=== PATIENT | male | born 1945 | race Caucasian/White ===

== ENCOUNTER 2017-05-07 10:05 | Inpatient (IN) ==
[2017-05-07] MEDS ORDERED: ASPIRIN PO STA (10:21)
[2017-05-07] MEDS ORDERED: LOPRESSOR IV ONE (10:22)
[2017-05-07 10:53] LABS: BASO% 3.9 % (0.0-0.8); HEMATOCRIT 35.2 % (42.0-52.0); HEMOGLOBIN 12.3 g/dL (14.0-18.0); LYMPH# 1.11 X1000 (1.2-3.4); LYMPH% 31.1 % (20.5-51.1); MANUAL DIFF NEEDED? NO; MCH 31.4 PG (27-31); MCHC 34.9 g/dL (33-37); MCV 89.8 FL (81-99); MONO# 0.51 X1000 (0.11-0.59); MONO% 14.3 % (1.7-9.3); NEUT% 50.7 % (42.2-75.2); PLT 57 X1000 (130-400); RBC 3.92 XMIL (4.7-6.1)
[2017-05-07 11:01] LABS: INR 1.34; PROTIME 14.3 Seconds (9.2-11.7); PTT 26.5 Seconds (22.0-36.0)
--- NOTE | 2017-05-07 11:04 | Diag Imaging Result Doc PS360 ---
EXAM: CHEST-2 VIEWS HISTORY: CP TECHNIQUE: Portable sitting upright COMPARISON: 02/14/2016 FINDINGS: The lungs are well expanded. The heart is not enlarged. The vessels are not distended. There are no infiltrates. No pleural effusions. IMPRESSION: No acute abnormality. Electronically signed by Jayant Montez 05/07/2017 11:02 AM
[2017-05-07 11:06] LABS: ALBUMIN 3.3 g/dL (3.5-5.0); CALCIUM 8.5 mg/dL (8.8-10.2); MAGNESIUM 1.9 mg/dL (1.5-2.7); POTASSIUM 3.5 mmol/L (3.5-5.1); TOTAL BILIRUBIN 0.92 mg/dL (0.20-1.00); TOTAL PROTEIN 6.4 g/dL (6.3-8.3)
--- NOTE | 2017-05-07 11:39 | EKG Report ---
Test Performed on : 05/07/2017 10:12:05 AM Test Reason : Chest Pain Blood Pressure : / mmHG Vent. Rate : 119 BPM Atrial Rate : 122 BPM P-R Int : 000 ms QRS Dur : 084 ms QT Int : 332 ms P-R-T Axes : 000 059 -39 degrees QTc Int : 467 ms Atrial fibrillation. with rapid ventricular response. Septal infarct , age undetermined Abnormal ECG When compared with ECG of 16-FEB-2016 05:20, Atrial fibrillation. has replaced Sinus rhythm. Vent. rate has increased BY 64 BPM Non-specific change in ST segment in Inferior leads Nonspecific T wave abnormality, worse in Inferior leads Unconfirmed Result
--- NOTE | 2017-05-07 12:11 | ED EKG INTERP ---
This chart was entered by Marcy Perry Scribe, acting as scribe for Juancho Sanz MD. EKG Interpretation - EKG Time of EKG reading by physician:: 10:12 EKG Read and Signed by:: Juancho Sanz EKG Interpretation (*Must complete 3 of following elements*): Abnormal Rate: 119 Rhythm: A-FIB W/RVR [place]: normal QRS: normal Comments: SEPTAL INFACRT, AGE UNDETERMINED This chart was documented by the indicated scribe, (Marcy Perry Scribe) and accurately reflects the services I performed and decisions made by me, Juancho Sanz MD, as attested by the provider's signature.
--- NOTE | 2017-05-07 12:11 | PROVIDER DOCUMENTATION ---
This chart was entered by Marcy Perry Scribe, acting as scribe for Juancho Sanz MD. HPI-General Adult - General Chief Complaint: Near Syncope Stated Complaint: WEAKNESS/A-FIB W/RVR Time Seen by Provider: 05/07/17 10:20 Source: patient Allergies/Adverse Reactions: Patient Allergies Allergy/AdvReac Type Severity Reaction Status Date / Time No Known Allergies Allergy Verified 05/07/17 11:06 Home Medications: Home Medication List Medication Instructions Recorded Confirmed Last Taken Type Atorvastatin Calcium [Lipitor] 10 mg PO QAM 12/07/15 05/07/17 05/06/17 History Folic Acid 1 mg PO QAM 12/07/15 05/07/17 05/06/17 History Allopurinol 100 mg PO DAILY 02/14/16 05/07/17 05/06/17 History RAMIpril [Altace] 10 mg PO BID #60 capsule 02/16/16 05/07/17 05/06/17 Rx Apixaban [Eliquis] 5 mg PO DAILY 08/10/16 05/07/17 05/06/17 History Hydralazine HCl 50 mg PO TID 08/10/16 05/07/17 05/06/17 History Methotrexate 3 tab PO MOTU 08/10/16 05/07/17 05/01/17 History Omeprazole [Prilosec] 40 mg PO DAILY 08/10/16 05/07/17 05/06/17 History Spironolactone 25 mg PO DAILY 08/10/16 05/07/17 05/06/17 History Diltiazem HCl [Cartia Xt] 120 mg PO 05/07/17 Unknown History Furosemide [Lasix] 40 mg PO DAILY 05/07/17 05/07/17 05/06/17 History - History of Present Illness -Gen Adult Nature of Presenting Problems: PT IS A 71YOM PRESENTING TO THE ED C/O WEAKNESS. PT STATES SINCE SUNDAY HE HAS FELT WEAK WITH FEELING "FAINT WHEN STANDING". PT HAS A YELLOWISH TONE TO SKIN. PT STATES FEELS PALPITATIONS AND INCREASED WEAKNESS UPON STANDING. NO OTHER COMPLAINTS AT THIS TIME. Location of Pain/Injury: reports: none Pain Radiation: reports: no radiation Quality of Pain: reports: none Severity: reports: mild Onset/Duration: reports: gradual, 3 days ago Timing: reports: still present Context/Activities at Onset: reports: light activity Modifying Factors: improves with: nothing Associated Symptoms: reports: fatigue, weakness. denies: anxiety, back/neck pain, chest pain, sinus congestion/drainage, shortness of breath Similar Symptoms Previously?: No Recently seen or treated by another doctor?: No Review of Systems - Adult - REVIEW OF SYSTEMS - ADULT Constitutional: reports: no symptoms reported Eyes: reports: no symptoms reported Ears, Nose, Mouth & Throat: reports: no symptoms reported Cardiovascular: reports: see HPI, palpitations. denies: chest pain, edema, syncope Respiratory: reports: no symptoms reported Gastrointestinal: reports: no symptoms reported Genitourinary: reports: no symptoms reported Musculoskeletal: reports: no symptoms reported Integumentary: reports: no symptoms reported Neurological: reports: no symptoms reported Psychiatric: reports: no symptoms reported Endocrine: reports: no symptoms reported Hematologic/Lymphatic: reports: no symptoms reported Allergic/Immunologic: reports: no symptoms reported All Other Systems: Reviewed and Negative Past History - Adult - PAST MEDICAL HISTORY-ADULT Review of Records: reports: Old Records Reviewed, Nursing Assessment Review, Medications Reviewed, Social history reviewed & non-contributory. Major Childhood Illnesses: reports: denies history Cardiovascular: reports: A-Fib, HTN, hyperlipidemia Respiratory: reports: COPD Gastrointestinal: reports: denies history Obstetrical/Gynecological: reports: denies history Genitourinary: reports: denies history Musculoskeletal: reports: denies history Neurological: reports: denies history Endocrine/Immune: reports: denies history Other Conditions: reports: denies history - PRIOR SURGERIES/PROCEDURES Surgical/Procedure History: reports: hernia repair - PRIOR HOSPITALIZATIONS Prior Hospitalizations: reports: none - IMMUNIZATION STATUS Childhood Immunizations: See Nurse Assessment Flu Vaccine: See Nurse Assessment - FAMILY HISTORY Family History: reviewed, not pertinent - SOCIAL HISTORY Smoking: non-smoker Substance Use: none/never, denies Living Situation: family Physical Exam-General - PHYSICAL EXAM-ADULT Initial Vital Signs Reviewed: Yes - CONSTITUTIONAL General Appearance: appears well, alert, mild distress, anxious - EYES Eyes: PERRL/EOMI, pink conjunctivae - HEAD, EARS, NOSE, MOUTH & THROAT HENMT: normocephalic/atraumatic, moist mucous membranes, normal ENT inspection, TMs normal, pharynx normal - NECK Neck: non-tender, full range of motion, supple, normal inspection - RESPIRATORY Respiratory: chest non-tender, lungs clear, normal breath sounds, no pleuratic chest pain, no respiratory distress, no accessory muscle use - CARDIOVASCULAR Cardiovascular: normal peripheral pulses, no edema, no gallop, no JVD, no murmur , tachycardia. negative: regular rate, rhythm - GASTROINTESTINAL (ABDOMEN) Abdominal Exam: normal bowel sounds, non tender, soft, no organomegaly, no pulsatile mass - LYMPHATIC Lymphatic: no adenopathy - MUSCULOSKELETAL Back Exam: normal inspection, no CVA tenderness, no vertebral tenderness Extremity: normal range of motion, non-tender, normal gait, normal inspection, no pedal edema, no calf tenderness, normal capillary refill, pelvis stable - SKIN Integumentary: normal turgor, warm/dry, jaundice. 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, grossly normal, no motor/sensory deficits - PSYCHIATRIC Psych/Mental Status: normal mood/affect, normal thought content, normal thought process, oriented x 3 Progress - PLAN OF CARE/RESULTS Progress/Plan/Lab Results: Vital Signs - 8 hr 05/07/17 10:14 Temperature 98.4 F Pulse Rate 115 H Respiratory Rate 17 Blood Pressure 106/64 O2 Sat by Pulse Oximetry 95 Laboratory Tests 05/07/17 05/07/17 05/07/17 10:09 10:09 10:09 WBC 3.57 L RBC 3.92 L Hgb 12.3 L Hct 35.2 L MCV 89.8 MCH 31.4 H MCHC 34.9 RDW Std Deviation 14.2 Plt Count 57 L MPV Not Reportable Immature Gran % (Auto) 0.0 Neut % (Auto) 50.7 Lymph % (Auto) 31.1 [place] % (Auto) 14.3 H Eos % (Auto) 0.0 Baso % (Auto) 3.9 H Immature Gran # (Auto) 0.00 Neut # (Auto) 1.81 Lymph # (Auto) 1.11 L [place] # (Auto) 0.51 Eos # (Auto) 0.00 Baso # (Auto) 0.14 PT INR PTT (Actin FS) Sodium 130 L Potassium 3.5 Chloride 92 L Carbon Dioxide 17 L Anion Gap 21 BUN 33 H Creatinine 1.9 H Estimated GFR/1.73 m2 35 BUN/Creatinine Ratio 17 Glucose 104 Calculated Osmolality 268 Calcium 8.5 L Magnesium 1.9 Total Bilirubin 0.92 AST 83 H ALT 65 H Alkaline Phosphatase 42 Creatine Kinase 147 Troponin T Oqm-M-Lpotyhareii Pept 3135 H Total Protein 6.4 Albumin 3.3 L Globulin 3.1 Albumin/Globulin Ratio 1.1 05/07/17 05/07/17 10:09 10:09 WBC RBC Hgb Hct MCV MCH MCHC RDW Std Deviation Plt Count MPV Immature Gran % (Auto) Neut % (Auto) Lymph % (Auto) [place] % (Auto) Eos % (Auto) Baso % (Auto) Immature Gran # (Auto) Neut # (Auto) Lymph # (Auto) [place] # (Auto) Eos # (Auto) Baso # (Auto) PT 14.3 H INR 1.34 PTT (Actin FS) 26.5 Sodium Potassium Chloride Carbon Dioxide Anion Gap BUN Creatinine Estimated GFR/1.73 m2 BUN/Creatinine Ratio Glucose Calculated Osmolality Calcium Magnesium Total Bilirubin AST ALT Alkaline Phosphatase Creatine Kinase Troponin T < 0.010 Scd-W-Ayztmbnqlll Pept Total Protein Albumin Globulin Albumin/Globulin Ratio Orders Category Date Time Status Cardiac Monitoring DIRECTED Care 05/07/17 10:21 Active Saline Loc NOW Care 05/07/17 10:21 Active CHEST-2 VIEWS [RAD] Stat Exams 05/07/17 10:21 Completed CBC WITH ELECTRONIC DIFF [HEME] Stat Lab 05/07/17 10:09 Completed CK PROFILE [SP CHEM] Stat Lab 05/07/17 10:09 Completed COMPREHENSIVE METABOLIC PANEL [CHEM] Stat Lab 05/07/17 10:09 Completed MAGNESIUM [CHEM] Stat Lab 05/07/17 10:09 Completed PRO B-NATRIURETIC PEPTIDE Stat Lab 05/07/17 10:09 Completed PROTIME WITH INR [COAG] Stat Lab 05/07/17 10:09 Completed PTT [COAG] Stat Lab 05/07/17 10:09 Completed TROPONIN T Stat Lab 05/07/17 10:09 Completed Aspirin Med 05/07/17 10:21 Discontinued 325 mg PO STAT STA Metoprolol [Lopressor] Med 05/07/17 10:22 Discontinued 2.5 mg IV NOW ONE EKG [EKG] Stat Ther 05/07/17 10:21 Draft Vital Signs - 24 hr 05/07/17 10:14 05/07/17 11:00 05/07/17 11:21 Temperature 98.4 F Pulse Rate 115 H 91 H 102 H Respiratory Rate 17 21 18 Blood Pressure 106/64 105/73 105/73 O2 Sat by Pulse Oximetry 95 97 96 Result Diagrams: 05/07/17 10:09 05/07/17 10:09 - XRAY 1 XRAY: Bilateral XRAY Study: Chest (NAD - HURST) - CONSULTS/PCP/HOSPITALIST Notification #1 *Consult/PCP/Hospitalist*: CARISSA Time Discussed: 12:05 Consult Disposition: Admit Departure - Departure Date of Disposition Decision: 05/07/17 Time of Disposition Decision: 12:05 DIAGNOSIS: CHF (congestive heart failure), Atrial fibrillation with RVR Disposition: ADMITTED INPATIENT 09 Certified Medical Emergency: Emergent Condition: Stable Additional Freetext Instructions: ED Follow Up Instructions: You have been treated by a care provider in the Emergency Department. These instructions are being provided to you so you can have an understanding of how to care for yourself upon discharge. Upon discharge from the Emergency Department, you are responsible for making arrangements for follow-up care by a physician of your choice. Take all prescribed medications as directed. Return to the Emergency Department immediately for any new or worsening symptoms. You may call the Physician Referral phone number at [phone] to obtain a list of Physicians who are taking new patients. Referrals and Follow-Ups: Viraj Patiño MD [Primary Care Provider] - - Critical Care Note This patient required my direct & personal management of CC.: Yes Total Time (mins): 60 Critical Care Statement: This patient required my direct personal management to treat or rule out processes, the absence of which, could potentiallly result in sudden, clinically significant life or limb threatening deterioration. This chart was documented by the indicated scribe, (Marcy Perry Scribe) and accurately reflects the services I performed and decisions made by me, Juancho Sanz MD, as attested by the provider's signature.
[2017-05-07] MEDS ORDERED: NS 1,000 ML IV ONE (13:44)
[2017-05-07] MEDS ORDERED: ZOFRAN IV PRN (13:44)
[2017-05-07] MEDS ORDERED: NS 1,000 ML ONE (14:55)
--- NOTE | 2017-05-07 18:43 | CONSULTATION ---
DATE OF CONSULTATION: 05/07/2017 CONSULTATION REQUESTED BY: Hospitalist Service. REASON FOR CONSULTATION: Acute chronic diastolic heart failure. I was notified by pager about this consult. I have not been contacted by the [facility] or the attending physician in this case. I am walking in the room at 5:30 p.m. Nurse is at the bedside. CHIEF COMPLAINT: Back pain, shortness of breath. Daughter is at the bedside. HISTORY OF PRESENT ILLNESS: Mr. Conway is a 71-year-old male who presented to the emergency room with a 3-4 day history of not feeling well. Appetite is poor. Poor oral intake. He has been having intermittent discomfort across the top of his shoulders and also intermittent shortness of breath. This morning his daughter found him to be very shaky, weak. He could barely get up or stand up. She decided to call the emergency medical service. Upon presentation to the emergency room, they did an EKG at 10:12 in the morning that shows atrial fibrillation with rapid response. Rate is 119 beats per minute. They noted a blood pressure of 106/64 at the first encounter, subsequently 105/73, 84/40, 107/54, 99/55. The patient has been admitted to the telemetry floor with a suspected case of atrial fibrillation, new onset or paroxysmal. His pro BNP level in the emergency room was 3135. Initial troponin was less than 0.010. CK was 147. His AST and ALT are elevated. Calcium level is low. His BUN is 33, creatinine 1.9, sodium 130, potassium 3.5. His white count is low at 3570, platelet count is low at 57 ,000, hemoglobin 12.3. PAST MEDICAL HISTORY: His past history is positive for hypertension for a number of years. He has had gout. He has had hyperlipidemia. He was seen by Dr. Margaux Sebastian at our office back in July of 2016. At that time, he had reported a previous bout of atrial fibrillation in December of 2015. The patient had a stress test in November of 2015 that was normal. There is no reported history of coronary heart disease on him. He has had reflux. He has had a hernia repair. History of psoriasis (on methotrexate for that). History of thrombocytopenia, follows with Dr. Davis for that. HOME MEDICATIONS: His home medications at the time of this admission included: 1. Furosemide 40 mg daily. 2. Methotrexate 3 tablets monthly. 3. Spironolactone 25 daily. 4. Ramipril 10 mg twice a day. 5. Omeprazole 40 mg daily. 6. Hydralazine 50 mg 3 times a day. 7. Folic acid 1 mg in the morning. 8. Lipitor 10 mg daily. 9. Eliquis 5 mg daily. 10.Allopurinol 100 mg daily. 11.Diltiazem 120 daily. ALLERGIES: He has no reported allergies. REVIEW OF SYSTEMS: Multiple systems were checked, cardiovascular, pulmonary, gastrointestinal, musculoskeletal, skin, immunological, hearing, visual, unremarkable. No major changes up until 4 days ago when the symptoms started. He says that on May 03 he went to see who diagnosed UTI and prescribed an antibiotic of which he took 4 doses. PHYSICAL EXAMINATION: Vital signs: Right now his blood pressure is 99/55. Pulse is about 110. Temperature 97.4. Respirations 16. General: The patient is in some painful distress. He says that his back started to hurt this afternoon and he is very uncomfortable. He is somewhat shaky. He appears to be generally weak and acutely ill. HEENT: Unremarkable. Chest: Fairly clear to auscultation and percussion. Cardiac: Heart sounds are irregularly irregular. Abdomen: Not distended and it does not appear to be specifically tender. Back: His back is somewhat tender at the level of the right flank to percussion. I palpated the spine and percussed the spine intensely and that did not reproduce the pain. Extremities: Showed decreased pulses. There is no peripheral edema. Neurologic: He is somewhat shaky, awake. He is in some painful distress. His back is hurting. The pain is somewhere in the upper lumbar area. IMPRESSION: 1. Patient presenting with a few days of anorexia, poor oral intake. His blood work indicates some degree of acute renal dysfunction with elevated creatinine up to 1.9 which is double the creatinine that we have on record. 2. Patient having acute back pain. 3. Patient having low blood pressure, hypotension. 4. Patient with atrial fibrillation and rapid response. 5. Patient is immunosuppressed on methotrexate for management of psoriasis. 6. Presumed diagnosis of UTI, given antibiotic (?) of which he took 4 doses. RECOMMENDATIONS: At this point in time, I would suggest to admit the patient to the cardiac stepdown unit for IV Cardizem management of his atrial fibrillation. We may have to put him on some pain medicine to control his back pain, however, I would like to get a CT scan of the chest and abdomen to further evaluate the symptom of back pain which is causing some distress. I will get ABGs, D-dimer, amylase and lipase. We will check inflammatory markers, C reactive protein and sedimentation rate. Further advice will be forthcoming. Thank you for asking us to participate in his evaluation. cc: Wes Tejada MD MTDD
--- NOTE | 2017-05-07 19:36 | HISTORY AND PHYSICAL ---
PRIMARY CARE PROVIDER: Dr. Patiño who we are currently covering his patients. CHIEF COMPLAINT: Shortness of breath, decreased appetite and weakness. HISTORY OF PRESENT ILLNESS: Mr. Conway is a 71-year-old male with a medical history of chronic diastolic heart failure, paroxysmal atrial fibrillation that is chronic, hypertension, hyperlipidemia who apparently since Sunday began feeling weak began feeling short of breath despite resting or movement. He has had a decrease in appetite. States he has not eaten or slept well sent. He then claims to having some spells of confusion. Upon standing he gets dizzy and nauseated, loses balance. Claims his blood pressure has been as low as 73 systolic to as high as 182 systolic since Sunday. Prior to Sunday he did have some of these symptoms on and off and had stopped taking his Cardizem this past Sunday. Last bowel movement was Sunday night, was normal in color and consistency. Workup revealed that he does have elevated creatinine of 1.9,m also has an elevated proBNP of 3135 and elevated AST and ALT of 83 and 65 which is new. Will admit overnight, consult Cardiology for further recommendations. PAST MEDICAL HISTORY: Chronic atrial fibrillation, chronic diastolic congestive heart failure, hypertension, dyslipidemia, GERD, psoriasis that he takes methotrexate for, thrombocytopenia, vitamin D deficiency, hyperuricemia and impaired fasting glucose. SURGICAL HISTORY: Umbilical hernia repair. SOCIAL HISTORY: Denies tobacco, states he drinks 1 alcoholic beverage per day. Quit smoking in January 2015, denies illicit drug use. FAMILY HISTORY: None significant. ALLERGIES: No known drug allergies. HOME MEDICATIONS: Allopurinol 100 mg p.o. daily, Eliquis 5 mg p.o. daily, Lipitor 10 mg p.o. daily, diltiazem 120 mg p.o. daily, folic acid 1 mg p.o. daily, Lasix 40 mg p.o. daily, hydralazine 50 mg p.o. 3 times a day, methotrexate 7.5 mg p.o. Sunday and Sunday, Prilosec 40 mg p.o. daily, Ramipril 10 mg p.o. twice daily, spironolactone 25 mg p.o. daily. REVIEW OF SYSTEMS: Fourteen point review of systems were complete and all were negative except for those mentioned in above HPI. PHYSICAL EXAMINATION: VITAL SIGNS: Temperature is 98.0 degrees, heart rate 111 irregular, respiratory 18, blood pressure 110/58, O2 saturation 99% on room air. Orthostatic vitals supine heart rate 90, blood pressure 113/90, sitting heart rate 99, blood pressure 102/34 and standing heart rate 110 and blood pressure 90/46. GENERAL: Mr. Ruben Conway is a 71-year-old male who is in no acute distress. He is able answer all questions appropriately. HEENT: Atraumatic, normocephalic. Pupils equal, round, reactive to light. Extraocular movements intact. NECK: No JVD or carotid bruits noted. CARDIOVASCULAR: Irregularly irregular rate and rhythm. No rubs, gallops, murmurs. PULMONARY: Clear to auscultate. Bilateral breath sounds. No accessory muscle use or work of breathing noted. GI: Soft, nontender, nondistended, positive bowel sounds x4. EXTREMITIES: Trace lower extremity edema noted, +1 dorsalis pedal pulses, +2 radial pulses. SKIN: Warm, dry, intact. NEUROLOGIC: A and O x4. Moves all extremities equally. LABORATORY DATA: White blood cells 3000, hemoglobin 12, hematocrit 35, platelet count 57,000. INR 1.34, PTT is 26.5. Sodium 130, potassium 3.5, BUN 33, creatinine is 1.9, glucose 104, magnesium 1.9, bilirubin 0.92, AST 83, ALT 65, CK 147, troponins less than 0.01, ProBNP is 3135, albumin 3.3. IMAGING: Chest x-ray no acute findings. EKG. Atrial fibrillation with RVR, rate 122, 53, 467. ASSESSMENT AND PLAN: 1. Acute on chronic diastolic congestive heart failure mild in nature on. Will consult cardiology for recommendations. Patient feels like he is short of breath frequently since Sunday with some near-syncopal type sensations of dizziness with nausea. 2. Orthostatic hypotension mild degree but this could be causing his dizziness. 3. Acute kidney injury, will be given IV fluid hydration and recheck labs in the morning. 4. Atrial fibrillation with rapid ventricular response, rate is more controlled, he did receive 2.5 mg of metoprolol in the emergency room, will also continue with Eliquis and aspirin. 5. Thrombocytopenia. Recently had bone marrow aspiration in July 2016, will reconsult Dr. Davis. Dictated by NEETA Rogers for Tho Asencio MD cc: MD Tho Sharif MD
[2017-05-07 19:42] LABS: BILIRUBIN URINE NEGATIVE (NEGATIVE); BLOOD URINE NEGATIVE (NEGATIVE); COLOR YELLOW; GLUCOSE URINE TRACE mg/dL (NEGATIVE); LEUKOCYTES URINE NEGATIVE (NEGATIVE); NITRITE URINE NEGATIVE (NEGATIVE); PROTEIN URINE 30 mg/dL (NEGATIVE); SP GRAVITY URINE 1.022; TURBIDITY URINE CLEAR (CLEAR); UR EPITHELIAL CELLS <10 /HPF (<10); URINE BACTERIA NEGATIVE /HPF; URINE CULTURE NEEDED? NO; URINE MICRO REVIEW NEEDED? NO; URINE RBC <10 /HPF (<10); URINE SOURCE CLEAN CATCH; URINE WBC <10 /HPF (<10); UROBILINOGEN URINE NORMAL (NORMAL)
[2017-05-07 19:54] LABS: ALLEN TEST YES; BE -7.3 mmoll (-3.0-3.0); BLOOD TYPE ARTERIAL; DRAW SITE R BRACHIAL; METHB 0.8 % (0.0-1.5); MODALITY ROOM AIR; O2(CT) 13.9 mL/dL (15.0-23.0); PCO2(98.6) 21 mmHg (35-45); PO2(98.6) 92 mmHg (60-100); SAMPLE BLOOD; SAO2 97.4 % (95.0-100.0); THB 10.2 g/dL (11.5-17.4); pH(98.6) 7.46 (7.35-7.45)
[2017-05-07 19:55] LABS: UR CREAT RANDOM 209.6 mg/dL (14-26)
--- NOTE | 2017-05-07 21:18 | Diag Imaging Result Doc PS360 ---
EXAM: THORAX/ABDOMEN/PELVIS W/O CONT HISTORY: severe chest pain ORAL ONLY TECHNIQUE: Dose reduction protocol COMPARISON: None. FINDINGS: Chest: No pleural effusions. Trace pericardial fluid. Heart is borderline mildly prominent. There are calcified mediastinal and right hilar lymph nodes and scattered calcified granuloma. No thoracic aortic aneurysm. No pneumothoraces. No consolidation. No bronchiectasis. Minimal groundglass infiltrates. Abdomen and pelvis: There is sludge within the gallbladder. No adjacent inflammation. The spleen is enlarged measuring 14.9 cm. There are scattered hepatic and splenic granuloma. No focal hepatic abnormality identified on this noncontrasted exam. No inflammation about the pancreas. Normal adrenal glands. No renal stones. No hydronephrosis. Prominent atherosclerosis. No aortic aneurysm. There are scattered mesenteric and para-aortic lymph nodes. No bowel obstruction. Normal appendix. No abscess. The urinary bladder is distended and appears normal. The prostate is not enlarged. Small iliac and inguinal lymph nodes. IMPRESSION: Chest: 1. There is evidence of a prior granulomatous infection 2. Trace pericardial fluid with borderline mild cardiomegaly 3. Tiny groundglass infiltrates Abdomen and pelvis: 1. Splenomegaly 2. Sludge within the gallbladder 3. Small scattered lymph nodes 4. Moderate to marked spinal stenosis at multiple levels in the lumbar spine Electronically signed by Jayant Montez 05/07/2017 9:15 PM
[2017-05-08 05:28] LABS: BASO% 5.8 % (0.0-0.8); EOS# 0.33 X1000 (0.0-0.7); EOS% 9.1 % (0.0-10.0); HEMATOCRIT 34.8 % (42.0-52.0); HEMOGLOBIN 12.1 g/dL (14.0-18.0); IMM GRAN# 0.04 X1000 (0.0-0.04); IMM GRAN% 1.1 % (0.0-0.5); LYMPH# 1.28 X1000 (1.2-3.4); LYMPH% 35.2 % (20.5-51.1); MANUAL DIFF NEEDED? YES; MCH 31.3 PG (27-31); MCHC 34.8 g/dL (33-37); MCV 90.2 FL (81-99); MONO# 0.55 X1000 (0.11-0.59); MONO% 15.1 % (1.7-9.3); NEUT% 33.7 % (42.2-75.2); PLT 64 X1000 (130-400); RBC 3.86 XMIL (4.7-6.1)
--- NOTE | 2017-05-08 06:23 | EKG Report ---
Test Performed on : 05/08/2017 05:40:04 AM Test Reason : Heart Failure Admission Blood Pressure : / mmHG Vent. Rate : 111 BPM Atrial Rate : 117 BPM P-R Int : 000 ms QRS Dur : 078 ms QT Int : 308 ms P-R-T Axes : 000 075 -14 degrees QTc Int : 418 ms Atrial fibrillation. with rapid ventricular response. Anteroseptal infarct (cited on or before 07-MAY-2017) Abnormal ECG When compared with ECG of 07-MAY-2017 10:12, (Unconfirmed) Questionable change in initial forces of Anterior leads Nonspecific T wave abnormality now evident in Anterior leads Confirmed by Mahesh REYNA, Kendell Puckett ([id number]) on 05/09/2017 2:55:41 PM
[2017-05-08 06:42] LABS: ALBUMIN 2.9 g/dL (3.5-5.0); CALCIUM 8.2 mg/dL (8.8-10.2); MAGNESIUM 1.9 mg/dL (1.5-2.7); POTASSIUM 4.6 mmol/L (3.5-5.1); TOTAL BILIRUBIN 1.11 mg/dL (0.20-1.00)
[2017-05-08 07:08] LABS: LYMPHS 28 % (21-51); MONO 8 % (1-9)
[2017-05-08] MEDS: CARDIZEM PO SCH ×3 (08:54→21:42)
[2017-05-08] MEDS: SODIUM BICARBONATE 8.4% 150 MEQ in D5W 1,000 ML IV SCH (08:54)
[2017-05-08] MEDS: ASPIRIN PO SCH (08:54)
[2017-05-08] MEDS: ELIQUIS PO SCH (08:54)
[2017-05-08] MEDS: FOLIC ACID PO SCH (08:54)
[2017-05-08] MEDS: PRILOSEC PO SCH (08:54)
[2017-05-08] MEDS ORDERED: LEVAQUIN 750 MG/D5W 750 MG/150 ML IVPB IV SCH (09:00)
--- NOTE | 2017-05-08 09:05 | PROGRESS NOTE ---
DATE: 05/08/2017 CHIEF COMPLAINT: Back pain, irregular heartbeat. SUBJECTIVE: Mr. Conway still feels poorly. He says that he has had intermittent back pain through the night. OBJECTIVE: Vital signs: Blood pressure is 143/94, temperature 98.5. Pulse has fluctuated from 100 to 138, respirations 22. General: He is awake, alert, oriented, in no distress. HEENT: Unremarkable. Chest: Clear to auscultation and percussion. Cardiac: Heart sounds are irregularly irregular, no gallop or murmur. Abdomen: Nontender, obese, no masses, no hepatomegaly. Extremities: No edema. He does have some fading rash of psoriasis on the elbows. Neurological: Moves four extremities, follows commands. BLOOD WORK: His white count is 3640. Hemoglobin is 12.1, hematocrit 43.8, platelet count 64,000. His sedimentation rate is 34, C-reactive protein level was 84.55. Amylase and lipase were negative. ProBNP is 2036 today. His AST is up to 103, ALT 67. Magnesium 1.9. Sodium 128, potassium 4.6, BUN 31, creatinine 1.6. A rheumatoid factor has been checked, is 84 international units/mL, which is about 6 times baseline. TELEMETRY: Telemetry indicates atrial fibrillation with moments of rapid response. EKG: His 12-lead EKG done today shows atrial fibrillation with no acute ST-T changes. ECHOCARDIOGRAM: Yesterday, echo was done at the bedside. It showed normal LV function. It was somewhat difficult due to patient's discomfort. IMPRESSION: 1. Patient presented with anorexia, feeling ill, presumably diagnosed with UTI at his doctor's office on May 03 and placed on an antibiotic, which we have not been able to identify. 2. Patient is presenting with acute renal failure based on previous levels of creatinine. 3. Patient is having acute back pain. 4. He has atrial fibrillation with rapid response. 5. The patient has a long-term history of use of methotrexate for management of psoriasis. He is technically, to some degree, immunosuppressed. 6. Inflammatory process of unknown etiology. RECOMMENDATION: We have done a CT scan of the abdomen and chest which does not show anything specific. The report from yesterday's CT indicates that he has evidence of a prior granulomatous infection, trace pericardial fluid, tiny ground-glass infiltrates. Abdomen and pelvis showed splenomegaly, small scattered lymph nodes. The patient is aware of having thrombocytopenia. His spleen was enlarged on the CT scan of the abdomen. He follows with Dr. Davis for that. At this point, we will obtain blood cultures. I will discuss with the hospitalist service and see what else we need to do. Because of his acute renal failure, I am going to put him on D5W with bicarbonate IV and put him on oral doses of Cardizem to control the heart rate. Further advice will be forthcoming. We may have to get Infectious Disease opinion since the CT scan of the chest demonstrates granulomatous infection, and the patient is immunocompromised. cc: Wes Tjeada MD
--- NOTE | 2017-05-08 10:14 | PROGRESS NOTE ---
DATE: 05/08/2017 SUBJECTIVE: Patient reports still feeling sick to his stomach. He reports every time he goes out, blood pressure goes up too. No sensation of chest pain. No shortness of breath. OBJECTIVE: Vital Signs: Temperature is 98.5, heart rate 138, respiratory rate 22, blood pressure 143/94, O2 saturation 98% on room air. General: This is a 71-year-old male, lying in bed, in no acute distress. HEENT: Head is normocephalic, atraumatic. Anicteric sclerae and pale conjunctivae. Mucous membranes moist. Neck: Supple. No JVD noted. No carotid bruits. No lymphadenopathy. No thyromegaly. Cardiovascular: S1, S2 heard. Irregularly irregular heart rhythm. No murmurs, gallops, or rubs. Respiratory: Clear bilaterally to auscultation. No work of breathing or using accessory muscles. Abdomen: Soft, nontender to palpation. Bowel sounds present. No organomegaly. Extremities: Mild edema noted 1+ both extremities. Peripheral pulses present in all legs. Neurological: Patient alert and oriented x3. Moves 4 extremities. Cranial nerves 2-12 grossly normal. LABORATORY DATA: White cell count 3.64, hemoglobin 12.1, hematocrit 34.8. Platelets 64. Sodium 138, potassium 4.6, chloride 94, bicarbonate 17, BUN 31, creatinine 1.6. ASSESSMENT AND PLAN: 1. Acute on chronic diastolic congestive heart failure. The patient has been evaluated by Cardiology. We will follow his recommendations. 2. Hypertension. Will continue with IV fluids. The patient reports that this condition is still going on. 3. Acute kidney injury. After IV fluids, the creatinine is improving a little bit. We will continue with the same management. 4. Atrial fibrillation with rapid ventricular response. The patient is on Cardizem drip. Metoprolol has been added to his current treatment. We are going to continue with the same management. 5. Thrombocytopenia. Recent bone marrow aspiration. Will re-consult Dr. Davis. 6. Bilateral pneumonia. Patient has bibasilar ground glass infiltrates so I will start Levofloxacin. Will see how this patient does clinically because those infiltrates can also be seen in patients with rheumatoid arthritis. If patient does not improve will consult pulmonary. This pneumonia may have triggered worsening atrial fibrillation. cc: Tho Asencio MD [facility]ITALJasiel
--- NOTE | 2017-05-08 11:01 | ECHO REPORT ---
ORDER DATE: 05/07/2017 ECHOCARDIOGRAPHIC MEASUREMENTS: 1. Interventricular septum 1.4, left ventricular posterior wall 1.1, diastolic diameter 4.2, left atrium 4.1, aorta 3.3. 2. Definity was used to assess left ventricular systolic function. 3. Technically suboptimal study. 4. Aortic valve leaflets are sclerosed, trileaflet, opening normally. Pulmonic valve not well visualized. Mitral valve was normal. Tricuspid valve was normal. There is mild mitral annular calcification. 5. Normal left ventricular cavity size. Estimated ejection fraction of 65%. Atrial fibrillation was noted. 6. Peak velocity across the aortic valve less than 2 m/sec. There is no aortic stenosis or regurgitation. There is trace mitral regurgitation. Mild tricuspid regurgitation. Peak velocity across the tricuspid valve was 2 m/sec. 7. Anterior echo-free space suggestive of pericardial fat pad was noted. There is no pericardial effusion or obvious intracardiac mass or thrombus seen. cc: MD Wes Carter MD
[2017-05-08] MEDS: LIPITOR PO SCH (21:42)
[2017-05-09] MEDS: SODIUM BICARBONATE 8.4% 150 MEQ in D5W 1,000 ML IV SCH ×2 (00:30→17:13)
[2017-05-09] MEDS: TYLENOL PO PRN ×2 (00:32→14:26)
[2017-05-09] MEDS: CARDIZEM PO SCH ×4 (02:41→20:55)
--- NOTE | 2017-05-09 07:56 | CONSULTATION ---
DATE OF CONSULTATION: 05/09/2017 CONCLUSION: Patient is admitted to the hospital with fever and chills. I am uncertain as to the exact origin of his fever. On CT scan, he does have some minimal pulmonary infiltrates, so pneumonia that does not yet show up well on radiographic studies may be the cause of it. The patient's liver function studies are up, which I think suggests that there could be some intra- abdominal focus of sepsis such as cholecystitis; however, it should be noted that on CT scan of the abdomen, the gallbladder just showed some sludge in it and nothing to suggest acute cholecystitis. RECOMMENDATIONS: I have discontinued Levaquin and have put the patient on Zosyn to broaden his antimicrobial spectrum. Also, I have put the patient on azithromycin in case the patient does in fact have pneumonia that is just early on and does not show much on radiographic studies. DISCUSSION: The patient tells me approximately 5 days ago, he started having irregular heart rate, shortness of breath, chills, anorexia and low back pain. He has been admitted to the hospital. His CT scan of the chest, abdomen and pelvis shows a small pericardial effusion and some small pulmonary infiltrates. There also was noted to be sludge in the gallbladder and scattered intra-abdominal lymph nodes. Also the CAT scan for the lumbar spine showed spinal stenosis. The patient complains of shortness of breath, chills, anorexia and low back pain. PAST MEDICAL HISTORY/REVIEW OF SYSTEMS: Eyes and Ears: The patient denies difficulty hearing or seeing. Neck: No stiffness. Respiratory: No cough, but he is short of breath. Genitourinary: No dysuria or flank pain. GI: No nausea, vomiting, or diarrhea. Integument: No rash. Neurologic: No seizures. No loss of motor or sensory function. The remainder of the patient's review of systems was completed and was negative. PREVIOUS HOSPITALIZATIONS AND OPERATIONS: He has had a hernia repair and twice prior to this episode, the patient has been admitted with atrial fibrillation. MEDICAL DISEASES: Positive for atrial fibrillation, hypertension hyperlipidemia, gout, and gastroesophageal reflux disease. The patient is on immunosuppressive therapy with methotrexate. INFECTIOUS DISEASE HISTORY: Positive for pneumonia and UTI. FAMILY HISTORY: Positive for cancer, hypertension and myocardial infarction. SOCIAL HISTORY: [place] He drinks alcoholic beverages. He does not smoke or abuse drugs. He is a . He has a dog as a pet. His grandson lives with him. ALLERGIES: The patient's chart does not list any drug allergies. HOME MEDICATIONS: Include the following: Lasix, methotrexate, spironolactone, Altace, Prilosec, hydralazine, atorvastatin, Eliquis, allopurinol and diltiazem High blood pressure. PHYSICAL EXAMINATION: Vital Signs: Temperature was 103.1 degrees. Now, it is 98.3 degrees. Pulse 86, respirations 24, blood pressure 99/62. Patient's weight is listed as 240 pounds. General: This is an obese, elderly male who is having chills now. Head, Eyes, Ears, Nose and Throat: He can hear my spoken words and see near objects. No drainage noted from the nose or ears. He is edentulous. Neck: No meningismus. Thorax: No increased AP diameter. There was no back tenderness. Abdomen: Slightly distended but soft and nontender. Neurologic: The patient is lethargic. He did move his extremities and he answered questions. The patient does not have any motor or sensory loss. Thank you for the consult. cc: Antony Parish MD
--- NOTE | 2017-05-09 08:08 | PROGRESS NOTE ---
DATE: 05/09/2017 CHIEF COMPLAINT: Irregular heartbeat, chills, back pain. SUBJECTIVE: Mr. Conway continues to have episodes of chills and back pain. He struggles. He starts huffing and puffing, moaning and groaning when trying to just get upright in bed. His telemetry shows that he is still in atrial fibrillation. However, the rate appears to be controlled. OBJECTIVE: Vital signs: Blood pressure is 99/52, temperature is 98.3, pulse 86, respirations 24. General: He is awake, alert, oriented, in no distress. HEENT: Unremarkable. Chest: Sounds clear to auscultation and percussion. Cardiac: Heart sounds are irregularly irregular. Abdomen: Nontender, no masses, no hepatomegaly. Extremities: No edema. Neurological: He moves 4 extremities. BLOOD WORK: Rheumatoid factor of 84. D-dimer 1.08. C-reactive protein 84.55. Sedimentation rate 74. All that indicated that he has some inflammatory process going on. In addition, he also has elevation of the liver function tests. IMPRESSION: 1. Patient with atrial fibrillation with initially rapid response. I believe this is reactive to some underlying inflammatory process. 2. Systemic inflammatory process of unclear etiology. Whether or not this has any connection with his previous history of thrombocytopenia, splenomegaly, and leukopenia is unclear. The patient has been taking methotrexate for psoriasis for some time. Whether this is a case of infection or vasculitis or something along those lines is also unclear. RECOMMENDATION: At this point in time, he is being evaluated by the infectious disease service. From cardiology viewpoint, I would continue the same medicines to control his heart rate. We may want to check other autoimmune factors if his blood cultures are negative. Further advice will be forthcoming. Thank you for the opportunity to participate in his evaluation. cc: Wes Tejada MD
[2017-05-09 08:30] LABS: CALCIUM 7.8 mg/dL (8.8-10.2); MAGNESIUM 1.7 mg/dL (1.5-2.7); POTASSIUM 3.8 mmol/L (3.5-5.1)
--- NOTE | 2017-05-09 08:47 | CONSULTATION ---
DATE OF CONSULTATION: 05/08/2017 ADMITTING PHYSICIAN: Hospitalist service. REQUESTING PHYSICIAN: Hospitalist service. FAMILY PHYSICIAN: Viraj Patiño MD. We appreciate this consult. CHIEF COMPLAINT: Thrombocytopenia. HISTORY OF PRESENT ILLNESS: Mr. Ruben Conway is a 71-year-old, male, well known to us with a history of low-grade MDS, hypogammaglobulinemia and thrombocytopenia. The patient presented to [facility] secondary to a 3-4 day history of "not feeling well". He reports that he has been having intermittent pain across the tops of the shoulders with shortness of breath. His daughter went to visit him and found him to be very weak and shaky, and reports that he could not stand up, at which time she decided to call emergency medical service. Upon presentation to [facility], EKG revealed atrial fibrillation with rapid ventricular response. Additionally, proBNP was found to be 2036. The patient is admitted for new onset atrial fibrillation, as well as CHF exacerbation. PAST MEDICAL HISTORY: 1. Hypertension. 2. Gout. 3. Hyperlipidemia. 4. History of atrial fibrillation that resolved. 5. Congestive heart failure. 6. Coronary artery disease. 7. Gastroesophageal reflux disease. 8. Psoriasis. 9. Thrombocytopenia. PAST SURGICAL HISTORY: Hernia repair. FAMILY HISTORY: Negative for any hematologic or oncologic problems. MEDICATIONS ON ADMISSION: 1. Furosemide. 2. Methotrexate. 3. Spironolactone. 4. Ramipril. 5. Omeprazole. 6. Hydralazine. 7. Folic acid. 8. Lipitor. 9. Eliquis. 10. Allopurinol. 11. Diltiazem. ALLERGIES: The patient has no known drug allergies. REVIEW OF SYSTEMS: A 14 point review of systems was obtained and is negative, except for as mentioned in HPI. LABORATORY DATA: Hemoglobin 12.1, hematocrit 34.8, white blood cell count 3.64, platelets 64. ANC 1.23, ALC 1.28. ESR is 74. Sodium 128, potassium 4.6, chloride 94, CO2 is 17. BUN 31, creatinine 1.6 and glucose is 79. Calcium 8.9, magnesium 1.9, bilirubin 1.11, alkaline phosphatase 40, AST 103, ALT 67, and proBNP is 2036. PHYSICAL EXAM: General: Mr. Conway is a 71-year-old, male, lying supine in bed in no immediate distress. HEENT: Normocephalic, atraumatic. Mucous membranes are pink and moist. Sclerae is anicteric. Extraocular movements intact. Neck: Supple. Lungs: Clear to auscultation bilaterally. Chest expansion is equal bilaterally. CV: S1, S2 is heard without murmur, rub or gallop. Abdomen: Soft, nondistended, nontender. Bowel sounds positive all quadrants. No rebound or guarding noted. Extremities: Without clubbing, cyanosis, or edema. Dermatologic: No rashes, bruises or lesions. Neurologic: The patient is awake, alert, and oriented x3. He has no focal deficit at this time. ASSESSMENT AND PLAN: 1. Thrombocytopenia with a platelet count of 64,000. Recent bone marrow biopsy revealed a slight increase in iron storage with thrombocytopenia. Platelet count today is 64,000, which is stable and at baseline. We will transfuse platelets if necessary for any procedures. 2. Acute on chronic diastolic congestive heart failure with a proBNP of 2035. Dr. Tejada is currently following. 3. Orthostatic hypotension. Workup is currently in progress. 4. Acute kidney injury. We agree with intravenous fluid hydration as ordered. Would monitor comprehensive metabolic panel. 5. Atrial fibrillation with rapid ventricular response, rate controlled. Currently on aspirin and Eliquis. We will follow along with him, make further recommendations pending outcomes. The above reflects the history, exam, assessment and plan of Dr. Davis. Dictated by NEETA Madsen for Deni Davis MD cc: NEETA Madsen MD
[2017-05-09] MEDS ORDERED: SAMSCA PO ONE (08:53)
--- NOTE | 2017-05-09 09:33 | PROGRESS NOTE ---
DATE: 05/09/2017 SUBJECTIVE: The patient reports feeling better. No shortness of breath reported , although he had fever yesterday. No chest pain noted OBJECTIVE: Vital Signs: Temperature 98.1 degrees, but yesterday at midnight 103.1, heart rate 80, respiratory rate 24, blood pressure 118/55, O2 saturation 93% 2 L nasal cannula. General Examination: This is a 71-year-old male, lying in bed in no acute distress. HEENT: Head is normocephalic, atraumatic. Anicteric sclerae and pale conjunctivae. Mucous membranes moist. Neck: Supple. No JVD noted. No carotid bruits. No lymphadenopathy. No thyromegaly. Cardiovascular exam: S1 and S2 heard. Regular rate and heart rhythm. No murmurs, gallops, or rubs. Respiratory exam: There is some coarse breath sounds in both bases. Patient is not using any accessory muscles or having work of breathing. Abdomen: Soft, nondistended and nontender. Bowel sounds present. No organomegaly. Extremities: Mild edema 1+ noted in both extremities. Peripheral pulses present in both legs. Neurological exam: Patient alert and oriented x3. Moves 4 extremities. Cranial nerves grossly normal. LABORATORY DATA: Still pending at time of dictation. The BMP shows sodium 129, potassium 3.8, chloride 89, bicarbonate 23, BUN 25 and creatinine 1.5. ASSESSMENT AND PLAN: 1. Acute on chronic diastolic heart failure. Patient evaluated by cardiology. We will follow his recommendations. They did not mention this diagnosis in his notes. 2. Bilateral pneumonia. I think this condition has triggered the rapid ventricular response for this patient chronic atrial fibrillation. Infectious disease has been consulted and they have changed the antibiotics for Zosyn and azithromycin. We will see how this patient does. He did spike fever yesterday night. We will keep an eye on him. 3. Acute kidney injury. From yesterday to today, the creatinine is kind of the same. We will continue checking basic metabolic panel. 4. Atrial fibrillation with rapid ventricular response. By now, the patient is off of Cardizem drip. Toprol has been added to his current treatment. Cardiology is following this patient. cc: Tho Asencio MD
[2017-05-09] MEDS: ASPIRIN PO SCH (09:50)
[2017-05-09] MEDS: PRILOSEC PO SCH (09:50)
[2017-05-09] MEDS: FOLIC ACID PO SCH (09:50)
[2017-05-09] MEDS: ELIQUIS PO SCH (09:50)
[2017-05-09] MEDS: ZOSYN 3.375 GM/NS 3.375 GM/50 ML IVPB IV SCH ×3 (09:56→20:55)
[2017-05-10] MEDS: CARDIZEM PO SCH ×4 (02:28→20:33)
[2017-05-10] MEDS: LIPITOR PO SCH ×2 (02:28→20:33)
[2017-05-10] MEDS: ZOSYN 3.375 GM/NS 3.375 GM/50 ML IVPB IV SCH ×4 (03:34→20:33)
[2017-05-10] MEDS: ZITHROMAX 500 MG/NS 500 MG/250 ML IVPB IV SCH (04:43)
--- NOTE | 2017-05-10 07:51 | PROGRESS NOTE ---
DATE: 05/10/2017 PRESENT ILLNESS: The patient was admitted to the hospital with fever and chills. He has not had any further fever or chills. He feels like he is getting better. Exactly what caused him to come in to the hospital is still uncertain to me at this time. MEDICATIONS: The patient is on a combination of azithromycin and Zosyn. PHYSICAL EXAMINATION: Vital Signs: Temperature is 98 degrees, pulse 86, respirations 13, blood pressure 106/80. Generally: This is a fairly healthy-appearing, elderly male. He is in no acute distress. Head, Eyes, Ears, Nose, and Throat: He can hear my spoken words and see near objects. No drainage is noted from the nose or ears. Neck: No meningismus. Thorax: He appeared to have an increased AP diameter to his chest. Cardiovascular: Heart rate was regular. Abdomen: Soft and nontender. LAB AND X-RAY: There is no new x-ray. The lab thus far shows a CBC with a white count of 3640, hemoglobin 12.1, and platelet count 64,000. Creatinine is 1.5. The GFR is 46. Blood cultures are sterile. ASSESSMENT AND PLAN: The patient had fever and chills. My suggestion would be to continue with the current antibiotics unless cultures indicate a change in treatment. COMORBIDITIES: He is elderly. I think that is the only comorbidity on him that I can find. cc: Antony Parish MD MTDD
[2017-05-10] MEDS: PRILOSEC PO SCH (08:27)
[2017-05-10] MEDS: FOLIC ACID PO SCH (08:27)
[2017-05-10] MEDS: TYLENOL PO PRN ×2 (08:27→15:50)
[2017-05-10] MEDS: ELIQUIS PO SCH (08:27)
[2017-05-10] MEDS: ASPIRIN PO SCH (08:27)
[2017-05-10 09:03] LABS: BASO% 1.9 % (0.0-0.8); HEMATOCRIT 27.4 % (42.0-52.0); HEMOGLOBIN 9.3 g/dL (14.0-18.0); IMM GRAN# 0.02 X1000 (0.0-0.04); IMM GRAN% 0.5 % (0.0-0.5); LYMPH# 1.29 X1000 (1.2-3.4); LYMPH% 35.3 % (20.5-51.1); MANUAL DIFF NEEDED? YES; MCH 31.3 PG (27-31); MCHC 33.9 g/dL (33-37); MCV 92.3 FL (81-99); MONO# 0.28 X1000 (0.11-0.59); MONO% 7.7 % (1.7-9.3); MPV 12.5 FL (7.4-10.4); NEUT% 54.6 % (42.2-75.2); PLT 49 X1000 (130-400); RBC 2.97 XMIL (4.7-6.1)
[2017-05-10 09:29] LABS: BANDS 2 % (0-1); LYMPHS 30 % (21-51)
[2017-05-10] MEDS: SODIUM BICARBONATE 8.4% 150 MEQ in D5W 1,000 ML IV SCH (14:21)
[2017-05-11] MEDS: TYLENOL PO PRN ×4 (00:08→23:06)
[2017-05-11] MEDS: ZOSYN 3.375 GM/NS 3.375 GM/50 ML IVPB IV SCH ×4 (02:25→20:13)
[2017-05-11] MEDS: CARDIZEM PO SCH ×4 (02:25→20:13)
[2017-05-11] MEDS: ZITHROMAX 500 MG/NS 500 MG/250 ML IVPB IV SCH (05:45)
[2017-05-11 06:16] LABS: HEMATOCRIT 23.9 % (42.0-52.0); HEMOGLOBIN 9.3 g/dL (14.0-18.0); MCH 39.2 PG (27-31); MCHC 38.9 g/dL (33-37); MCV 100.8 FL (81-99); MPV 13.1 FL (7.4-10.4); RBC 2.37 XMIL (4.7-6.1)
[2017-05-11 06:26] LABS: CALCIUM 7.6 mg/dL (8.8-10.2); MAGNESIUM 2.1 mg/dL (1.5-2.7); POTASSIUM 3.6 mmol/L (3.5-5.1)
--- NOTE | 2017-05-11 07:39 | Diag Imaging Result Doc PS360 ---
EXAM: LUMBAR SPINE 2-VIEWS HISTORY: low back pain TECHNIQUE: Two views COMPARISON: None. FINDINGS: There are moderate-sized bone spurs throughout the lumbar spine. No compressed vertebra. No subluxation. Moderate atherosclerosis. IMPRESSION: Moderate degenerative changes. Electronically signed by Jayant Montez 05/11/2017 7:37 AM
--- NOTE | 2017-05-11 07:40 | Diag Imaging Result Doc PS360 ---
EXAM: CHEST-2 VIEWS HISTORY: pneumonia TECHNIQUE: COMPARISON: 05/07/2017 FINDINGS: The lungs are well expanded. The heart is not enlarged. The vessels are not distended. There are increased markings in the left base. No pleural effusions. IMPRESSION: Atelectasis versus a small infiltrate in the left base. Electronically signed by Jayant Montez 05/11/2017 7:38 AM
--- NOTE | 2017-05-11 07:43 | PROGRESS NOTE ---
DATE: 05/11/2017 PRESENT ILLNESS: The patient came to the hospital having fever and chills. When he had chills, he also had low back pain. He has been afebrile in the hospital but he still is having chills and when he has the chills, he has low back pain as well. MEDICATIONS: The patient is on a combination of Zosyn and azithromycin. This is the 2nd day of treatment with both of those antibiotics. PHYSICAL EXAMINATION: Vital Signs: Right now, the patient is having chills and shakes but when we took his temperature it was 97.6, pulse is 65, respirations 27, blood pressure 95/90. General: This is an ill-appearing, elderly male. As mentioned above, he is having chills and shakes. He also is complaining of low back pain. Lungs: Clear to auscultation. Cardiovascular: Regular heart rate. Abdomen: Soft and nontender. Back: Palpation of the lumbar spine shows that the spine area is not tender and it is not swollen. LAB AND X-RAY: The patient just was taken down now for a chest x-ray and a lumbar spine x-ray. The patient's CBC today shows a white count that is down to 2860, hemoglobin 9.3 , and platelet count 57,000. Patient's creatinine is 1.4. The GFR is 50. Blood cultures for this patient are negative. ASSESSMENT AND PLAN: Patient continues to have fever and chills, but he not having fevers. I want to continue with his current antibiotics because to some extent, he is bit better in that he is not having fever now, and his chills and back pain are less frequent. My plan is to continue with his current antibiotics. He has just been taken down to radiology for a chest x-ray and a lumbar spine film. COMORBIDITIES: Include that he is elderly. His blood counts continue to fall. I am going to consult Hematology/Oncology given the fact that he is developing progressive pancytopenia. cc: Antony Parish MD [facility]
[2017-05-11] MEDS: ELIQUIS PO SCH (08:38)
[2017-05-11] MEDS: PRILOSEC PO SCH (08:38)
[2017-05-11] MEDS: FOLIC ACID PO SCH (08:39)
[2017-05-11] MEDS: ASPIRIN PO SCH (08:39)
[2017-05-11] MEDS: LIPITOR PO SCH (20:13)
[2017-05-11] MEDS ORDERED: CALMOSEPTINE OINTMENT TOP PRN (20:20)
[2017-05-12] MEDS: CARDIZEM PO SCH ×4 (02:16→20:26)
[2017-05-12] MEDS: ZOSYN 3.375 GM/NS 3.375 GM/50 ML IVPB IV SCH ×4 (02:16→20:26)
[2017-05-12] MEDS: ZITHROMAX 500 MG/NS 500 MG/250 ML IVPB IV SCH (04:34)
[2017-05-12 05:26] LABS: HEMATOCRIT 26.9 % (42.0-52.0); HEMOGLOBIN 9.4 g/dL (14.0-18.0); MCH 35.2 PG (27-31); MCHC 34.9 g/dL (33-37); MCV 100.7 FL (81-99); MPV 12.5 FL (7.4-10.4); RBC 2.67 XMIL (4.7-6.1)
[2017-05-12 05:46] LABS: POTASSIUM 3.8 mmol/L (3.5-5.1)
[2017-05-12] MEDS: TYLENOL PO PRN ×2 (05:46→15:02)
[2017-05-12] MEDS: ASPIRIN PO SCH (08:25)
[2017-05-12] MEDS: FOLIC ACID PO SCH (08:25)
[2017-05-12] MEDS: ELIQUIS PO SCH (08:25)
[2017-05-12] MEDS: PRILOSEC PO SCH (08:25)
--- NOTE | 2017-05-12 09:00 | PROGRESS NOTE ---
DATE: 05/12/2017 SUBJECTIVE: Mr. Conway is in no acute distress at this time. He reports that he will have good and bad days. VITAL SIGNS: Temperature 98.9 degrees, heart rate 93, respirations 20, blood pressure 115/70. O2 saturation 96% on room air. LABORATORY: White blood cells 3.02. Hemoglobin 9.4, hematocrit 26.9, platelets are 73,000. Sodium 133, potassium 3.8, chloride 92, CO2 of 32. BUN 19, creatinine 1.3, glucose 270. PHYSICAL EXAMINATION: Cardiovascular: S1-S2 heard. Regular rate and rhythm at this time. Respiratory: Coarse breath sounds bilaterally with some scattered wheezing. Gastrointestinal: Abdomen is soft and nontender. Positive bowel sounds. Extremities: Patient has some pedal edema that is trace. Chest x-ray done on 05/11/2017 shows atelectasis versus a small infiltrate in the left base. An x-ray of the lumbar spine done 05/11/2017 shows moderate degenerative changes. ASSESSMENT AND PLAN: 1. Thrombocytopenia. Patient's platelet count is improved today at 73,000. He denies any abnormal bleeding. Continue to monitor. 2. Pneumonia. Slowly improving. Patient encouraged to sit up on the side of the bed as much as possible. Continue current management with azithromycin and Zosyn. 3. [id number] diastolic chronic heart failure. Cardiology is on board. Continue management as per their recommendations. 4. Atrial fibrillation with rapid ventricular rate. Currently on aspirin and Eliquis. It sounds like he is in normal sinus rhythm at this time. 5. Lower back pain. Patient is receiving Tylenol PRN. X-ray as per above. Dictated by FRANCK Eckert for Stella Rouse MD cc: Stella Rouse MD
[2017-05-12] MEDS ORDERED: ZYLOPRIM PO SCH (09:21)
[2017-05-12 10:25] LABS: MAGNESIUM 2.1 mg/dL (1.5-2.7)
[2017-05-12] MEDS: APRESOLINE PO SCH ×3 (10:35→16:28)
--- NOTE | 2017-05-12 13:30 | PROGRESS NOTE ---
DATE: 05/12/2017 CHIEF COMPLAINT: Back pain, irregular heartbeat, cough. SUBJECTIVE: Mr. Conway is still having quite a bit of back pain and back stiffness. He is coughing up some phlegm. He is still not feeling well, however, his heart rate is much better controlled and he does not appear to be as toxic as he was. OBJECTIVE: Vital signs: Blood pressure 115/70, temperature 98.9, pulse 93, respirations 20. General: The patient is awake, alert, oriented, in no distress. HEENT: Unremarkable. Chest: Clear to auscultation and percussion. Cardiac: Heart sounds are irregularly irregular. Rate is controlled. Abdomen: Soft. No hepatomegaly. Extremities: Show no edema. Neurologic: Follows commands. Moves all extremities. LABORATORY DATA: Sodium 133, potassium 3.8, BUN 19, creatinine 1.3. His C reactive protein is elevated significantly at 155.78. His sedimentation rate is 100. IMPRESSION: 1. Patient with atrial fibrillation which appears to be of new onset with controlled response now on oral Cardizem. 2. Back pain of uncertain etiology. 3. Suspected pneumonia which is being treated with antibiotics. The patient has marked elevation of inflammatory markers. His last chest x-ray from yesterday showed atelectasis versus a small infiltrate in the left base. A lumbar spine x-ray showed moderate degenerative changes. 4. History of psoriasis, previously on methotrexate. RECOMMENDATIONS: At this point in time, we will continue present approach with low dose oral Cardizem and continue antibiotics under the direction of Dr. Parish. We will check a set of antinuclear antibodies for completion. We will discuss with Dr. Parish whether or not further testing needs to be done. cc: Wes Tejada MD
[2017-05-12] MEDS: PREDNISONE PO SCH (15:02)
[2017-05-12] MEDS: LIPITOR PO SCH (20:26)
[2017-05-13] MEDS: ZOSYN 3.375 GM/NS 3.375 GM/50 ML IVPB IV SCH ×4 (03:10→21:19)
[2017-05-13] MEDS: CARDIZEM PO SCH ×4 (03:13→21:19)
[2017-05-13] MEDS: ZITHROMAX 500 MG/NS 500 MG/250 ML IVPB IV SCH (06:25)
[2017-05-13] MEDS: TYLENOL PO PRN (06:25)
[2017-05-13 07:32] LABS: HEMATOCRIT 30.4 % (42.0-52.0); HEMOGLOBIN 10.2 g/dL (14.0-18.0); MCH 31.5 PG (27-31); MCHC 33.6 g/dL (33-37); MCV 93.8 FL (81-99); RBC 3.24 XMIL (4.7-6.1)
[2017-05-13 07:33] LABS: CALCIUM 8.2 mg/dL (8.8-10.2); POTASSIUM 3.3 mmol/L (3.5-5.1)
[2017-05-13] MEDS: ASPIRIN PO SCH (08:57)
[2017-05-13] MEDS: PREDNISONE PO SCH (08:57)
[2017-05-13] MEDS: PRILOSEC PO SCH (08:57)
[2017-05-13] MEDS: APRESOLINE PO SCH ×3 (08:57→17:05)
[2017-05-13] MEDS: ELIQUIS PO SCH (08:57)
[2017-05-13] MEDS: FOLIC ACID PO SCH (08:57)
--- NOTE | 2017-05-13 10:11 | Diag Imaging Result Doc PS360 ---
CHEST-2 VIEWS - 05/13/2017 INDICATION: hypoxia TECHNIQUE: COMPARISON: 05/11/2017 FINDINGS: There is increase in the density of the moderately large infiltrate in the posterior left lung base. Stable trace effusion on the left. The right lung remains clear. Heart size remains top normal. IMPRESSION: Increase in the density of the left lower lobe infiltrate compatible with pneumonia. Stable trace left pleural effusion. Electronically signed by Jonas White 05/13/2017 10:09 AM
[2017-05-13] MEDS ORDERED: SAMSCA PO ONE (10:58)
[2017-05-13] MEDS ORDERED: POTASSIUM CHLORIDE 20% LIQUID PO ONE (10:58)
[2017-05-13] MEDS ORDERED: KLOR-CON PO ONE (11:33)
--- NOTE | 2017-05-13 11:44 | PROGRESS NOTE ---
DATE: 05/13/2017 CHIEF COMPLAINT: Weakness, cough productive of thick phlegm, low grade temperature, back pain. SUBJECTIVE: Mr. Conway is feeling somewhat better. Yesterday he was able to get up and walk around with the therapist. Back pain is a little better. Today he had a chest x-ray PA and lateral that shows increased density of the left lower lobe pneumonia. OBJECTIVE: Blood pressure is 110/55, temperature 97.6, pulse 71, respirations 20. He is awake, alert. HEENT is normal. Chest: Diminished breath sounds at the bases, especially left lung. Heart sounds are irregularly irregular. No gallop or murmur. Abdomen: Nontender. Extremities: No edema. Neurologic: Moves all 4 extremities and follows commands. DIAGNOSTIC DATA: Telemetry reveals atrial fibrillation with controlled response. Blood work shows sodium 132, potassium 3.3, BUN is 18, creatinine 1.2, calcium 8.2. White count is 4340, hemoglobin 10.2, hematocrit 30.4, platelet count is 87,000. IMPRESSION: 1. The patient is with atrial fibrillation which is chronic with controlled ventricular response. 2. Pneumonia of left lower lobe, clinically improving; however, radiographically it is becoming more obvious and dense. 3. Back pain, etiology unclear. 4. History of psoriasis. 5. Hyponatremia. 6. Hypokalemia. RECOMMENDATIONS: At this point in time, we will continue present course of therapy. We are going to prescribe potassium liquid and also Samsca to correct his electrolyte abnormalities. Further advice will be forthcoming. cc: Wes Tejada MD
[2017-05-13] MEDS ORDERED: DUONEB (A & A) INH PRN (14:59)
[2017-05-13] MEDS: DUONEB (A & A) INH SCH ×2 (16:40→23:01)
--- NOTE | 2017-05-13 18:59 | PROGRESS NOTE ---
DATE: 05/13/2017 SUBJECTIVE: The patient feels a little bit better today. OBJECTIVE: Vital Signs: Blood pressure 110/55, heart rate 71, respiratory rate of 20, temperature 97.6 degrees, afebrile. Cardiovascular: Regular rate and rhythm. Pulmonary: Bilateral breath sounds. Clear to auscultation. Gastrointestinal: Abdomen is soft, nontender, nondistended. Bowel sounds are positive. PROBLEM LIST: 1. A left lower lobe pneumonia. We will continue empiric antibiotics. I am going to add breathing treatments, maybe some Mucomyst and see how he does. If he not doing much better, may have to adjust the antibiotics further. 2. Get pulmonary input. 3. Atrial fibrillation, appears to be rate controlled. He is already on Eliquis. I am going to switch his Cardizem to CD 240. 4. History of psoriasis with increased inflammatory markers, which may be infectious versus primary autoimmune. Dr. Hernandez has evaluated the patient and does not feel there is an active autoimmune process at this point or nothing rheumatological. We will continue to monitor. I am waiting on an JIMENEZ and his ANCA levels were negative. His sedimentation rate and CRP however have increased. 5. Hyponatremia/hypokalemia. This is been adjusted by Dr. Wes Tejada. He has been placed on Samsca and potassium. We will continue to follow. DISPOSITION: Hopefully plan to go home with home health, pending his clinical course. cc: Derrek Fitch MD
[2017-05-13] MEDS: LIPITOR PO SCH (21:19)
[2017-05-13] MEDS: MUCOMYST 20% INH SCH (23:01)
[2017-05-14] MEDS: CARDIZEM PO SCH ×4 (02:37→20:09)
[2017-05-14] MEDS: ZOSYN 3.375 GM/NS 3.375 GM/50 ML IVPB IV SCH ×4 (02:37→20:09)
[2017-05-14] MEDS: TYLENOL PO PRN ×2 (02:42→20:09)
[2017-05-14] MEDS: DUONEB (A & A) INH SCH ×4 (03:25→22:04)
[2017-05-14] MEDS: ZITHROMAX 500 MG/NS 500 MG/250 ML IVPB IV SCH (05:44)
[2017-05-14 07:35] LABS: HEMATOCRIT 29.9 % (42.0-52.0); MCH 33.3 PG (27-31); MCHC 33.4 g/dL (33-37); MCV 99.7 FL (81-99); MPV 12.1 FL (7.4-10.4)
[2017-05-14 07:49] LABS: CALCIUM 8.1 mg/dL (8.8-10.2); POTASSIUM 4.5 mmol/L (3.5-5.1)
[2017-05-14] MEDS ORDERED: METHOTREXATE PO SCH (09:00)
[2017-05-14] MEDS: MUCOMYST 20% INH SCH ×2 (09:06→22:04)
[2017-05-14] MEDS: PRILOSEC PO SCH (09:46)
[2017-05-14] MEDS: APRESOLINE PO SCH ×3 (09:47→20:09)
[2017-05-14] MEDS: ASPIRIN PO SCH (09:47)
[2017-05-14] MEDS: ELIQUIS PO SCH (09:47)
[2017-05-14] MEDS: FOLIC ACID PO SCH (09:47)
[2017-05-14] MEDS: PREDNISONE PO SCH (09:49)
[2017-05-14] MEDS ORDERED: SAMSCA PO ONE (15:23)
--- NOTE | 2017-05-14 17:01 | PROGRESS NOTE ---
DATE: 05/14/2017 SUBJECTIVE: Patient still feels weak, tired, and short of breath. OBJECTIVE: Vital Signs: Blood pressure 130/58, heart rate 67, respiratory rate 18, temperature 98.4 degrees. Cardiovascular: Regular rate and rhythm. Pulmonary: Bilateral breath sounds. Clear to auscultation. GI: Soft, nontender, nondistended. Bowel sounds are positive. Extremities: No clubbing or cyanosis. Lymphatics: No peripheral edema. Neurological: Nonfocal. LABORATORY DATA: White count 3.8, hemoglobin and hematocrit 10 and 29, platelets 77,000, creatinine 1.3. PROBLEM LIST: 1. Left lower lobe pneumonia. We will continue empiric antibiotics. I think he is clinically improving. He is on Zosyn and azithromycin day 7. 2. Atrial fibrillation with rapid ventricular response. He is stable on his current medications. Eliquis. Cardizem, we will switch to 240. 3. Rheumatological. Again sedimentation rate and CRP are elevated, but we have had a rheumatological evaluation. He does not feel anything active rheumatological was going on. Still waiting on JIMENEZ levels. 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 I do have him on some low-dose steroids just to help with his arthritic pain, and overall potentially there could be some underlying issues there. 4. Hyponatremia, hypokalemia. He has improved. I think we will probably give him a dose of Samsca again today and see how he does. DISPOSITION: I think he may benefit from rehab in the next 1-2 days. cc: Derrek Fitch MD
--- NOTE | 2017-05-14 18:06 | PROGRESS NOTE ---
DATE: 05/14/2017 PRESENT ILLNESS: The patient has a left lower lobe pneumonia. He has been complaining of back pain, although today it is much better, but on x-ray only degenerative joint disease was seen. MEDICATIONS: This is day 8 of treatment with a combination of Zosyn and azithromycin. PHYSICAL EXAMINATION: Vital Signs: Temperature is 98.4 degrees, pulse 67, respirations 18, blood pressure 130/50. General: This is a somewhat ill-appearing elderly male. He is in no acute distress. Lungs: Clear to auscultation. Cardiovascular: Regular heart rate. Abdomen: Soft and nontender. Neurologic: The patient is alert. He can move his extremities. There is no tremor. LABORATORY AND X-RAY: Chest x-ray shows increased left lower lobe density, but not size. CBC shows a white count of 3860, hemoglobin 10, and platelet count 77,000. Creatinine is 1.3. The GFR is 54. CE. ASSESSMENT AND PLAN: The patient has pneumonia. My plan is to continue the current antibiotics. If it does not start clearing up soon, I will need to add coverage for methicillin-resistant Staphylococcus aureus. COMORBIDITIES: He is elderly. He has pancytopenia. cc: Antony Parish MD
[2017-05-14] MEDS: LIPITOR PO SCH (20:09)
[2017-05-15] MEDS: CARDIZEM PO SCH ×4 (02:40→20:45)
[2017-05-15] MEDS: ZOSYN 3.375 GM/NS 3.375 GM/50 ML IVPB IV SCH ×4 (03:04→23:18)
[2017-05-15] MEDS: TYLENOL PO PRN (03:47)
[2017-05-15] MEDS: DUONEB (A & A) INH SCH ×4 (03:55→21:34)
[2017-05-15] MEDS: ZITHROMAX 500 MG/NS 500 MG/250 ML IVPB IV SCH (04:29)
[2017-05-15 07:19] LABS: HEMATOCRIT 29.2 % (42.0-52.0); HEMOGLOBIN 9.5 g/dL (14.0-18.0); MCH 32.2 PG (27-31); MCHC 32.5 g/dL (33-37); MPV 12.9 FL (7.4-10.4); RBC 2.95 XMIL (4.7-6.1)
[2017-05-15 07:28] LABS: POTASSIUM 4.6 mmol/L (3.5-5.1)
--- NOTE | 2017-05-15 07:54 | Diag Imaging Result Doc PS360 ---
CHEST-2 VIEWS - 05/15/2017 INDICATION: hypoxia TECHNIQUE: COMPARISON: 05/13/2017 FINDINGS: Stable epicardial fat-pad at the cardiac apex. Stable infiltrate and effusion at the left lung base best seen on the lateral view. No new infiltrates. IMPRESSION: No change from prior. Electronically signed by Jonas White 05/15/2017 7:52 AM
--- NOTE | 2017-05-15 08:31 | PROGRESS NOTE ---
DATE: 05/15/2017 CHIEF COMPLAINT: Irregular heartbeat, back pain, cough productive of thick phlegm. SUBJECTIVE: The patient is still having significant back pain when he tries to sit up in bed. He has been up and about with the therapist. His rate appears to be well controlled on present therapy. OBJECTIVE: Vital signs: Blood pressure 134/54, temperature 98.6, pulse 71, respirations 19. General: He is awake, alert, in no distress. HEENT: Unremarkable. Chest: Relatively clear lungs. Cardiac: Heart sounds irregularly irregular, no gallop or murmur. Abdomen: Obese, nontender. Extremities: Good pulses, no edema. Neurologic: Follows commands, moves four extremities. BLOOD WORK TODAY: Sodium is normal at 138. Potassium is also normal at 4.6. BUN and creatinine are also normal today. White count is 4120, hemoglobin 9.5, hematocrit is 29.2. Of note, his complement levels, both C3 and C4, were low. C3 was 53, being normal at 90 to 180, and C4 was 2, being normal at 10 to 40. Antinuclear antibodies are pending at this time. IMPRESSION: 1. Patient with persistent atrial fibrillation. This may be chronic. 2. Pneumonia, left lower lobe. 3. History of psoriasis. 4. Back pain, acute on chronic. 5. Electrolyte disturbance has resolved. 6. Question of vasculitis. RECOMMENDATION: At this point in time, we are waiting for antinuclear antibodies. He seems to be progressing well. Dr. Parish from Infectious Disease is monitoring him closely. Will see how he does over the next day or two. Once the patient is absolutely stable, we might consider performing a transesophageal echocardiogram and a cardioversion procedure on him. However, at this point in time, with the presence of ongoing inflammatory process, I feel reluctant to do so, because he would be very likely to flip back into atrial fibrillation. cc: Wes Tejada MD [facility]
[2017-05-15] MEDS: ELIQUIS PO SCH (08:34)
[2017-05-15] MEDS: FOLIC ACID PO SCH (08:34)
[2017-05-15] MEDS: PREDNISONE PO SCH (08:34)
[2017-05-15] MEDS: PRILOSEC PO SCH (08:34)
[2017-05-15] MEDS: ASPIRIN PO SCH (08:35)
[2017-05-15] MEDS: APRESOLINE PO SCH ×4 (08:48→19:36)
[2017-05-15] MEDS: MUCOMYST 20% INH SCH ×2 (09:20→19:49)
--- NOTE | 2017-05-15 12:28 | PROGRESS NOTE ---
DATE: 05/15/2017 SUBJECTIVE: Today Mr. Conway refers to be doing a little better. He continues to have remarkable dyspnea. OBJECTIVE: Vital signs: Blood pressure is 99/63, pulse of 80, respirations 18 , temperature 99.9 degrees. General: Mr. Conway is a 71-year-old male. He is slightly overweight with a BMI of 33.9. He is in bed, mild respiratory distress. HEENT: Mucosa is pink and moist. Anicteric. Acyanotic. Neck: Supple. Chest: Air entry is bilaterally reduced. There are a few fine Velcro crepitations bilateral. Cardiovascular: Regular rate and rhythm. No murmurs. No rubs. No gallops. Abdomen: Soft. Extremities: No pedal edema. STONE LAYER: Patient is alert and oriented x4. There is no focal neurological deficit. LABORATORY DATA: WBC is 4.12, hemoglobin is 9.5, platelet count of 82,000. Chemistry: Sodium is 138, potassium is 4.6, chloride is 102, bicarb is 24. A total complement level is low, less than 3. C4 is also 2 and C3 is also low. Rheumatoid factor is elevated. The rheumatoid factor was about 84 when he came. A chest x-ray this morning shows stable infiltrate and effusion at the left lung base, seen on the lateral view. ASSESSMENT: 1. Respiratory distress. Etiology apparently not clear. We think it is multifactorial. Patient is being treated for pneumonia and some pleural effusions. However, the patient also has a remarkable history of treatment with methotrexate and also has underlying psoriasis. I more concerned of possible rheumatological involvement of the lung causing interstitial lung disease. I will therefore do a CT scan of the chest without contrast, high resolution CT scan, to have a better anatomy of the lungs. Rheumatology has already been consulted. We are pending Dr. Hernandez recommendations. Patient is being followed by both cardiology and ID. Depending on the CT scan report I will consult pulmonary medicine to evaluate the patient. 2. Suspect vasculitis. The patient has elevated inflammatory markers. Rheumatoid factor is elevated. We are pending the JIMENEZ results and also I will order anti- citrullinated peptide to follow up on his rheumatoid status since his rheumatoid factor was elevated and we know there is a very good association of rheumatoid arthritis with interstitial lung disease. 3. Atrial fibrillation with rapid ventricular response on presentation. This has resolved. 4. Diastolic heart failure on presentation, improved. 5. Suspected pneumonia. Patient is currently on medication, antibiotics and is being followed by Dr. Parish. 6. Pancytopenia with microcytic changes on the hemoglobin. PLAN: So, in general I think Mr. Conway is having more subjective and, of course , objective signs of shortness of breath. Chest x-ray is not very revealing so will do a CT scan of the chest. I think he has an underlying interstitial lung disease which is driving his symptoms. This could all be consistent with methotrexate as side effects , as well as the patient presented with some renal failure and liver enzyme abnormalities which all could be attributed to methotrexate vrs lung involved rheumatological disorder. cc: Rui Kwok MD [facility]TDJasiel
--- NOTE | 2017-05-15 13:40 | Diag Imaging Result Doc PS360 ---
EXAM: CT THORAX W/O CONTRAST HISTORY: pneumonia/pneumonitis TECHNIQUE: CT of the chest without contrast with dose reduction (clarity.) COMMENT: The current study is compared with that of 05/07/2017. Compared to the previous examination, there are now small bilateral pleural effusions. Atelectasis and/or pneumonia in the lower lobes, particularly on the left. There are stones noted in the gallbladder and granulomata in the liver and spleen. There is bilateral gynecomastia. The regional skeleton appears stable. IMPRESSION: Interval development of bilateral pleural effusions and basilar atelectasis/pneumonia. Electronically signed by Isael Cardoza 05/15/2017 1:37 PM
--- NOTE | 2017-05-15 16:28 | PROGRESS NOTE ---
DATE: 05/15/2017 PRESENT ILLNESS: The patient appears to have a bibasilar pneumonia. MEDICATIONS: The patient has been on Zosyn and azithromycin now for 9 days. PHYSICAL EXAMINATION: Vital Signs: Temperature is 97.8 degrees, pulse 103, respirations 22, blood pressure 116/59. Generally: This is an ill-appearing, elderly male. He has been walking more today and also he has been eating well. Cardiovascular: Regular heart rate. Lungs: Clear to auscultation. Abdomen: Soft and nontender. Neurologic: Patient is awake. He can move his extremities. There is no tremor. LAB AND X-RAY: A CT scan of the chest shows bilateral pleural effusions and bilateral basilar atelectasis versus pneumonia. ASSESSMENT AND PLAN: Patient has pneumonia. The plan is to continue the current antibiotics. I think clinically the patient is doing better and I do not think at this time we need to institute treatment with an antibiotic that has activity against methicillin-resistant Staph aureus. COMORBIDITIES: Include he is elderly. He also is pancytopenic. cc: Antony Parish MD
[2017-05-15] MEDS: LIPITOR PO SCH (20:45)
[2017-05-16] MEDS: CARDIZEM PO SCH ×4 (02:47→22:26)
[2017-05-16] MEDS: DUONEB (A & A) INH SCH ×4 (03:26→19:40)
[2017-05-16] MEDS: TYLENOL PO PRN (03:42)
[2017-05-16] MEDS: ZOSYN 3.375 GM/NS 3.375 GM/50 ML IVPB IV SCH ×5 (05:47→23:35)
[2017-05-16] MEDS: ZITHROMAX 500 MG/NS 500 MG/250 ML IVPB IV SCH (05:48)
[2017-05-16 07:36] LABS: AGAP 14; ALBUMIN 2.2 g/dL (3.5-5.0); ALKALINE PHOSPHATASE 50 U/L (32-122); BUN 14 mg/dL (8-22); CHLORIDE 102 mmol/L (98-107); COSMO 272; EOS# 0.01 X1000 (0.0-0.7); EOS% 0.2 % (0.0-10.0); GOT 66 U/L (10-34); GPT 39 U/L (10-44); HEMATOCRIT 32.2 % (42.0-52.0); HEMOGLOBIN 10.4 g/dL (14.0-18.0); IMM GRAN# 0.04 X1000 (0.0-0.04); IMM GRAN% 0.7 % (0.0-0.5); LYMPH% 39.2 % (20.5-51.1); MANUAL DIFF NEEDED? YES; MCH 30.5 PG (27-31); MCHC 32.3 g/dL (33-37); MCV 94.4 FL (81-99); MONO# 0.52 X1000 (0.11-0.59); MONO% 8.9 % (1.7-9.3); MPV 12.3 FL (7.4-10.4); PLT 113 X1000 (130-400); POTASSIUM 4.4 mmol/L (3.5-5.1); RBC 3.41 XMIL (4.7-6.1); SODIUM 136 mmol/L (136-145); TCO2 20 mmol/L (25-35); TOTAL BILIRUBIN 0.77 mg/dL (0.20-1.00); TOTAL PROTEIN 6.3 g/dL (6.3-8.3)
[2017-05-16] MEDS: MUCOMYST 20% INH SCH ×2 (08:00→19:40)
[2017-05-16 08:32] LABS: LYMPHS 24 % (21-51); MONO 14 % (1-9)
[2017-05-16] MEDS: PRILOSEC PO SCH (09:46)
[2017-05-16] MEDS: APRESOLINE PO SCH ×3 (09:47→17:10)
[2017-05-16] MEDS: ASPIRIN PO SCH (09:47)
[2017-05-16] MEDS: ELIQUIS PO SCH (09:47)
[2017-05-16] MEDS: FOLIC ACID PO SCH (09:47)
[2017-05-16] MEDS: PREDNISONE PO SCH (09:47)
[2017-05-16] MEDS ORDERED: LASIX IV ONE ×2 (10:00→20:08)
--- NOTE | 2017-05-16 10:57 | PROGRESS NOTE ---
DATE: 05/16/2017 SUBJECTIVE: This morning, Mr. Conway refers to be doing a lot better. However, early on, he said he was having more difficulty breathing. Saturating in the low 90s and his oxygen level had to be up titrated. I was also told he was slightly diaphoretic. OBJECTIVE: Vital signs: Blood pressure is 136/48, pulse of 79, respirations 22 , temperature is 100.5. General: Mr. Conway is a 71-year-old male. He is in bed. He is not in any distress now. Mucosa is pink and moist. Anicteric. Acyanotic. Neck: Supple. Chest: Air entry is bilaterally reduced. There are a few bibasilar crepitations. Cardiovascular: Irregularly irregular. No murmurs. Abdomen: Soft. Extremities: No pedal edema. GENERAL INTERNAL MEDICINE PHYSICIAN: Patient is alert and oriented x4. There is no focal neurological deficit. LABORATORY DATA: WBC is normalized at 5.87, hemoglobin is 10.4, platelet count of 113, improving. Sodium is 136, potassium is 4.4, chloride is 102, bicarb is 22, AST is improving 66. ALT has normalized to 39. DIAGNOSTIC STUDIES: A CT scan of the chest which was done yesterday shows interval development of bilateral pleural effusions and bibasilar atelectasis/pneumonia. ASSESSMENT: 1. Respiratory distress, likely multifactorial, including: A. Bilateral atelectasis. B. Pneumonia. C. Pleural effusions. D. Suspicion of methotrexate induced lung injury. 2. Hypocomplementemia with suspicion for vasculitis. Patient has been evaluated by Dr. Hernandez, the environmental health sanitarian. 3. Atrial fibrillation with rapid ventricular rate on presentation. Currently rate controlled. 4. Acute diastolic heart failure on presentation, due to tachyarrhythmias ( atrial fibrillation rapid ventricular rate). 5. Pneumonia. Patient is on Zosyn and azithromycin and is being followed by Dr. Parish. 6. Pancytopenia. The numbers are improving. Patient is also being followed by Dr. Davis. 7. History of psoriasis. Patient was on methotrexate. This has been discontinued. Patient does not show any active signs of any flare. 8. Elevated rheumatoid factor. We have ordered the anti-citrullinated peptide. We are still pending the result. PLAN: So, today, I think that Mr. Conway is relatively stable. He had an episode of some shortness of breath with low O2 saturation and needed to go up on his oxygen. We are going to consult Pulmonary Medicine to evaluate the patient since I think he probably also has some underlying methotrexate induced lung injury. The patient is currently on antibiotics and on steroids. We would encourage him to sit up at least twice per day to help open up some of the atelectatic lungs and will also put him on incentive spirometer to help open some of the closed lung. cc: Rui Kwok MD MTDD
--- NOTE | 2017-05-16 15:52 | PROGRESS NOTE ---
DATE: 05/16/2017 PRESENT ILLNESS: Patient has a bibasilar pneumonia. MEDICATIONS: This is day 10 of treatment with a combination of Zosyn and azithromycin. PHYSICAL EXAMINATION: Vital Signs: Temperature is 98.9 degrees, pulse 72, respiration 17, blood pressure 110/88. General: This is a somewhat ill-appearing, elderly male. He is in no acute distress. He has been moving around more but he remains anorectic. Lungs: Clear to auscultation. Cardiovascular: Regular heart rate. Abdomen: Soft and nontender. Neurologic: Patient is alert and coherent. He is able to ambulate. LAB AND X-RAY: CBC for today shows a white count of 5870, hemoglobin 10.4, and platelet count 113,000. Creatinine is 1.1. GFR is greater than 60. Liver functions studies are normal except for an AST of 66. There is no new radiographic study. ASSESSMENT AND PLAN: I plan to continue with the patient's current antibiotics for his current diagnosis which is pneumonia. COMORBIDITIES: Include he is elderly, he also was much more pancytopenic than he currently is. cc: Antony Parish MD [facility]
[2017-05-16] MEDS: LIPITOR PO SCH (22:26)
[2017-05-17] MEDS: CARDIZEM PO SCH ×4 (02:05→22:38)
[2017-05-17] MEDS: DUONEB (A & A) INH SCH ×4 (03:15→20:07)
--- NOTE | 2017-05-17 04:57 | CONSULTATION ---
DATE OF CONSULTATION: 05/16/2017 REQUESTING PHYSICIAN: Dr. Kwok. REASON FOR CONSULTATION: Patient on methotrexate, possible methotrexate pneumonitis. HISTORY OF PRESENT ILLNESS: Mr. Conway is a 71-year-old, white male with psoriatic arthritis on methotrexate, thrombocytopenia, atrial fibrillation with rapid ventricular response, who presented to the emergency room feeling weak. Heart rate was elevated at 119. He had evidence of orthostasis. Laboratories revealed thrombocytopenia and evidence of acute renal insufficiency. The patient underwent CT scan of the thorax, abdomen, and pelvis. CT scan of the thorax was essentially clear with only minimal changes present. CT scan of the abdomen and pelvis revealed splenomegaly, sludge in the gallbladder, with significant spinal stenosis. The patient subsequently has developed low-grade fevers. Chest x-ray four days after admission revealed increased density in the left lung base which progressed on a chest x-ray two days later. He has been evaluated by Dr. Antony Parish and is being treated for pneumonia. CT scan of the thorax was performed yesterday which revealed bibasilar effusions along with bibasilar pneumonia, predominantly posteriorly in the lung bases. PAST MEDICAL HISTORY/PROBLEM LIST: 1. COPD with greater than 50 pack year history for tobacco. He reports that he has been a nonsmoker for the last 3 years. 2. Psoriatic arthritis, on methotrexate. 3. Splenomegaly with thrombocytopenia. 4. Spinal stenosis as per above. 5. Atrial fibrillation with rapid ventricular response. 6. Hypertension. 7. Gastroesophageal reflux. SOCIAL HISTORY: Prior tobacco use. Drinks 1 alcoholic beverage per day. FAMILY HISTORY: Noncontributory. REVIEW OF SYSTEMS: Notable for shortness of breath on exertion, cough productive of yellow-tinged sputum. PHYSICAL EXAMINATION: General: Reveals an obese, white male sitting in his chair, resting comfortably, and in no distress. Vital Signs: Blood pressure 130/62, heart rate 78, respiratory rate 20, oxygen saturation 100% on 3 L per nasal cannula. HEENT: Pupils are equal and reactive. Oropharynx is clear. Neck: Supple. Chest: Reveals prolonged expiratory phase. Cardiac Examination: Irregularly irregular. Normal S1, normal S2. Abdomen: Mildly distended with increased tympany. Extremities: Reveal 1 to 2+ pretibial edema. LABORATORIES: White blood count 5.87, hemoglobin 10.4, platelet count 113,000. Chemistry: Sodium 136, potassium 4.4, chloride 102, bicarbonate 20, BUN 14, creatinine 1.1. IMPRESSION: A 71-year-old with hospital-acquired pneumonia. Given the radiographic findings and known history of reflux, bibasilar infiltrates are most consistent with an aspiration pneumonitis. The patient had a CT scan on presentation which was essentially clear with minimal changes present. Methotrexate-induced lung injury is felt to be much less likely, given his pattern of infiltrates and the finding of a clear CT scan on presentation. RECOMMENDATIONS: 1. Diurese for fluid overload as you are doing. 2. Oxygen as needed for hypoxemic respiratory failure. 3. Antibiotics for nosocomial/aspiration as per Dr. Antony Parish. cc: Ruben Addison MD
[2017-05-17] MEDS: ZITHROMAX 500 MG/NS 500 MG/250 ML IVPB IV SCH (05:30)
[2017-05-17] MEDS: ZOSYN 3.375 GM/NS 3.375 GM/50 ML IVPB IV SCH ×2 (06:39→12:53)
--- NOTE | 2017-05-17 07:50 | Diag Imaging Result Doc PS360 ---
KUB ABDOMEN - 05/17/2017 INDICATION: abd distention TECHNIQUE: COMPARISON: 01/05/2016 FINDINGS: There is a nonobstructive bowel gas pattern. No free air or abdominal calcifications. IMPRESSION: No acute disease. Electronically signed by Jonas White 05/17/2017 7:48 AM
--- NOTE | 2017-05-17 07:50 | Diag Imaging Result Doc PS360 ---
CHEST-2 VIEWS - 05/17/2017 INDICATION: abnormal exam TECHNIQUE: COMPARISON: 05/15/2017 FINDINGS: Heart size remains top normal. There is patient motion artifact on the frontal view. No new or focal infiltrates. There is decrease in the trace pleural effusions. No new infiltrates. IMPRESSION: Improvement from prior, with decrease in trace pleural effusions. Electronically signed by Jonas White 05/17/2017 7:47 AM
[2017-05-17] MEDS: MUCOMYST 20% INH SCH ×2 (09:17→20:06)
[2017-05-17] MEDS: APRESOLINE PO SCH ×3 (09:50→16:44)
[2017-05-17] MEDS: ASPIRIN PO SCH (09:50)
[2017-05-17] MEDS: PREDNISONE PO SCH (09:50)
[2017-05-17] MEDS: ELIQUIS PO SCH (09:50)
[2017-05-17] MEDS: PRILOSEC PO SCH (09:50)
[2017-05-17] MEDS: FOLIC ACID PO SCH (09:50)
--- NOTE | 2017-05-17 15:31 | PROGRESS NOTE ---
DATE: 05/17/2017 PRESENT ILLNESS: The patient has a bibasilar pneumonia which now on x-ray has cleared. The patient now is complaining of pain in his mouth and a rough-type of finish on his tongue. When I examined the patient's mouth, he has oral Candidiasis. MEDICATIONS: This is day 11 of treatment with Zosyn and azithromycin. PHYSICAL EXAMINATION: Vital Signs: Temperature is 98.3 degrees, pulse 70, respirations 20, blood pressure 133/62. Generally: This is a fairly healthy-appearing, elderly male. He is in no acute distress. Head, eyes, ears, nose, and throat: Patient has multiple white nodular lesions and some patches on his tongue. Neck: No meningismus. Lungs clear to auscultation. Cardiovascular: Regular heart rate. Abdomen soft and nontender. LABORATORY DATA AND X-RAY: The patient's CBC for today shows a white count of 5870, hemoglobin 10.4, and platelet count 113,000. Creatinine is 1.1. GFR is greater than 60. Blood cultures are negative. Abdominal x-ray shows no acute disease. Chest x-ray shows no infiltrates but it does show a trace of bilateral pleural effusions which are less than they were previously. ASSESSMENT AND PLAN: As mentioned above, the patient's pneumonia has resolved. I have discontinued azithromycin and Zosyn. The patient does have oral Candidiasis and, for this, I have started him on Nystatin mouthwash. Patient's comorbidities: He is elderly. He had been pancytopenic. cc: Antony Parish MD
[2017-05-17] MEDS: MYCOSTATIN SUSP PO SCH ×2 (16:49→22:37)
--- NOTE | 2017-05-17 17:30 | PROGRESS NOTE ---
DATE: 05/17/2017 SUBJECTIVE: Today Mr. Conway refers to be doing a lot better. He was actually sitting up in a chair when I saw him. He said his breathing has also significantly improved. He had also walked with physical therapy on the floor. OBJECTIVE: Vital signs: Blood pressure was 123/60, pulse of 60, respirations 20, temperature 97.0 degrees. General: Mr. Conway is a 71-year-old male. He was sitting up in a chair. Not in any distress. HEENT: Mucosa is pink and moist. Anicteric. Acyanotic. Neck: Supple. Chest: Air entry was bilaterally reduced. There are a few bibasilar crepitations. Cardiovascular: Irregularly irregular. No murmurs. Abdomen: Soft. Extremities: No pedal edema. TILE FINISHER: Patient is alert and oriented x4. LABORATORY DATA: None for today. DIAGNOSTIC STUDIES: A chest x-ray which was done today showed improvement. There is a decrease in the trace of pleural effusions. No new infiltrates. ASSESSMENT: 1. Respiratory distress which is multifactorial including bilateral atelectasis, pneumonia, pleural effusions. Has improved. 2. Hypocomplementemia with suspicion for vasculitis. Patient has been evaluated by Dr. Hernandez. 3. Atrial fibrillation with rapid ventricular response on presentation. Currently rate controlled. 4. Acute diastolic heart failure on presentation due to tachy arrhythmias (atrial fibrillation with rapid ventricular response). This has improved. 5. Pneumonia, questionable for aspiration. Patient was started on Zosyn and azithromycin. This has been discontinued today by Dr. Parish. 6. Pancytopenia, improved. PLAN: So in general, I think Mr. Conway got admitted because of shortness of breath, respiratory distress which we think is a combination of congestive heart failure from diastolic and also pneumonia. He seems to be doing a lot better. We are going to continue with 1 more day of Lasix to improve on the pleural effusions and pulmonary congestion. Hopefully by tomorrow we will be able to discharge the patient. My understanding is that he probably has a bed at the rehab facility for tomorrow. cc: Rui Kwok MD
[2017-05-17] MEDS: LIPITOR PO SCH (22:38)
[2017-05-18] MEDS: CARDIZEM PO SCH ×2 (01:47→09:59)
[2017-05-18] MEDS: DUONEB (A & A) INH SCH ×2 (04:01→10:23)
--- NOTE | 2017-05-18 06:22 | Diag Imaging Result Doc PS360 ---
EXAM: CHEST-PORTABLE HISTORY: dyspnea TECHNIQUE: Portable COMPARISON: 05/17/2017 FINDINGS: The lungs are well expanded. The heart is mildly enlarged. The vessels are not distended. No pleural effusions identified. No consolidation. IMPRESSION: Mild cardiomegaly. Electronically signed by Jayant Montez 05/18/2017 6:20 AM
[2017-05-18 07:18] LABS: MANUAL DIFF NEEDED? NO
[2017-05-18 07:24] LABS: BASO% 0.8 % (0.0-0.8); EOS# 0.03 X1000 (0.0-0.7); EOS% 0.6 % (0.0-10.0); HEMATOCRIT 29.2 % (42.0-52.0); HEMOGLOBIN 9.7 g/dL (14.0-18.0); IMM GRAN# 0.02 X1000 (0.0-0.04); IMM GRAN% 0.4 % (0.0-0.5); LYMPH# 1.67 X1000 (1.2-3.4); LYMPH% 34.4 % (20.5-51.1); MCHC 33.2 g/dL (33-37); MCV 93.3 FL (81-99); MONO# 0.37 X1000 (0.11-0.59); MONO% 7.6 % (1.7-9.3); MPV 11.6 FL (7.4-10.4); NEUT% 56.2 % (42.2-75.2); PLT 117 X1000 (130-400); RBC 3.13 XMIL (4.7-6.1)
[2017-05-18 07:43] LABS: AGAP 13; BUN 21 mg/dL (8-22); CALCIUM 7.8 mg/dL (8.8-10.2); CHLORIDE 102 mmol/L (98-107); COSMO 275; SODIUM 136 mmol/L (136-145); TCO2 21 mmol/L (25-35)
[2017-05-18] MEDS: APRESOLINE PO SCH ×3 (09:59→13:56)
[2017-05-18] MEDS: ASPIRIN PO SCH (09:59)
[2017-05-18] MEDS: PREDNISONE PO SCH (10:00)
[2017-05-18] MEDS: FOLIC ACID PO SCH (10:00)
[2017-05-18] MEDS: ELIQUIS PO SCH (10:00)
[2017-05-18] MEDS: MYCOSTATIN SUSP PO SCH ×2 (10:13→14:00)
[2017-05-18 10:14] VITALS: BP 112/43
[2017-05-18] MEDS: MUCOMYST 20% INH SCH (10:26)
[2017-05-18] MEDS ORDERED: PREDNISONE PO SCH (12:07)
--- NOTE | 2017-05-18 13:00 | DISCHARGE SUMMARY ---
ADMISSION DATE: 05/07/2017 DISCHARGE DATE: 05/18/2017 DISPOSITION: [facility]. FOLLOWUP: 1. Dr. Wes Tejada. 2. Dr. Antony Parish. 3. Dr. Mayank Limon. 4. Dr. Julisa Hernandez. INVASIVE PROCEDURES DONE DURING THIS ADMISSION: None. IMAGING STUDIES OF SIGNIFICANCE: A CT scan of the chest, abdomen, and pelvic was done on presentation which shows some prior granulomatous infection, tiny ground-glass infiltrates, some sludge within the gallbladder. A repeat CT scan of the chest, done on 05/15/2017, shows interval development of bilateral pleural effusions and bibasilar atelectasis and pneumonia. A chest x-ray done today shows mild cardiomegaly. The vessels are not distended and there are no pleural effusions identified. No consolidation identified. ADMISSION DIAGNOSES: 1. [id number] diastolic heart failure. 2. Orthostatic hypotension. 3. Atrial fibrillation with rapid ventricular response. 4. Thrombocytopenia. DIAGNOSIS AT THE TIME OF DISCHARGE: 1. Respiratory distress secondary to multifactorial etiology including: A: Bilateral atelectasis. B: Pneumonia. C: Pleural effusion. 2. Atrial fibrillation with rapid ventricular response on presentation. 3. Acute diastolic heart failure on presentation due to tachyarrhythmias ( atrial fibrillation rapid ventricular response). 4. Pneumonia, questionable aspiration. Patient finished therapy with both Zosyn and azithromycin. 5. Pancytopenia, improved. 6. 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 Patient was evaluated by Dr. Hernandez and will follow up with him. DISCHARGE MEDICATIONS: 1. Folic acid 1 mg p.o. daily. 2. Atorvastatin 10 mg daily. 3. Allopurinol 100 mg daily. 4. Ramipril 10 mg b.i.d. 5. Omeprazole 40 mg daily. 6. Spironolactone 25 mg daily. 7. Methotrexate. 8. Hydralazine 50 mg 3 times per day. 9. Apixaban 5 mg daily. 10. Diltiazem 240 mg daily. 11. Furosemide 20 mg b.i.d. 12. Aspirin 81 mg daily. 13. Prednisone has been reduced to 10 mg daily. PRESENTING COMPLAINT: Shortness of breath, decreased appetite, and weakness. HISTORY OF PRESENTING COMPLAINT: Mr. Conway is a 71-year-old male with extensive history of paroxysmal atrial fibrillation, diastolic heart failure, who presented to the emergency department because of shortness of breath. The patient was evaluated on presentation and found to have blood pressures of 182/73 with a pulse rate of up to 103 which was irregular. The patient was subsequently admitted to the medical floor for further management. HOSPITAL COURSE: The patient was admitted and treated in regular fashion. He was started on short-acting Cardizem for better rate control. He was given multiple doses of Lasix and was started on IV antibiotics. The patient was evaluated throughout his hospital course by multiple subspecialties including Cardiology, Infectious Disease. At one point, there was a suspicion that he probably might have a vasculitis. Multiple studies were done. None of them was very conclusive. Dr. Hernandez saw him. From his note, he did not think that the patient had lupus or any recognized rheumatological disease. He did recognize that the patient probably might have some form of vasculitis which is undifferentiated, and he will follow up with him on an outpatient basis. The patient tolerated physical therapy during the hospital stay and, today, he refers to be doing a lot better. His antibiotics have been completed and they have been discontinued by Dr. Parish. The patient will, therefore, be discharged to the rehab in very stable condition to continue with physical rehabilitation. At the time of discharge, there are no pending labs or imaging studies. DISPOSITION: [facility]. ACTIVITY: As tolerated. DIET: Healthy heart diet. LABORATORY: No pending labs. FOLLOWUPS: Outlined above. TIME SPENT FOR DISCHARGE: 37 minutes. cc: Rui Kwok MD MTDD
[2017-05-18] MEDS: PRILOSEC PO SCH (13:57)
[2017-05-18] MEDS ORDERED: LASIX PO SCH (21:00)
[2017-05-19] MEDS ORDERED: CARDIZEM CD PO SCH (09:00)
== END 2017-05-18 15:32 ==
LOC: SUPCPDRO → ED 10:05 → SUATTDRO 13:11 → EDIPHOLD 13:11 → 4N 15:24 → 3S 18:59 → 3N 05-12 09:08
PROVIDERS: ATTEND Internal Medicine